=== PATIENT | male | born 1965 | race Caucasian/White ===

== ENCOUNTER 2024-09-06 13:03 | Emergency (ER) | payer OTHER, SELFPAY ==
--- NOTE | 2024-09-06 13:05 | ED_ITS ---
HPI - Skin/Abscess/Foreign Bdy General Chief complaint: Skin/Abscess/Foreign Body Stated complaint: Lump underneath left breast that is oozing Time Seen by Provider: 09/06/24 13:05 Source: patient Mode of arrival: ambulatory Limitations: no limitations History of Present Illness HPI narrative: Patient is a 59-year-old male who presents with wound under left breast. Patient states it has been present for few days but just started using yesterday evening. Denies any known wound, growth, bite. Has never had abscesses in the past. Denies any fever, chills, nausea, vomiting, diarrhea. Related Data Allergies Allergy/AdvReac Type Severity Reaction Status Date / Time No Known Drug Allergies Allergy other Verified 09/06/24 13:06 Review of Systems 2 Review of Systems: All systems reviewed & are unremarkable except as noted in HPI and below Constitutional: Constitutional: Denies body ache(s), Denies chills, Denies fatigue, Denies fever(s), Denies headache(s), Denies malaise and Denies weakness Eyes: Eyes: Denies blurry vision, Denies irritation and Denies loss of vision ENT: Denies otalgia, Denies headache(s), Denies nasal discharge, Denies sinus pain and Denies sore throat Cardiovascular: Cardiovascular: Denies chest pain, Denies irregular heart rhythm and Denies dyspnea Respiratory: Respiratory: Denies dyspnea Gastrointestinal: Gastrointestinal: Denies abdominal pain, Denies melena, Denies hematochezia, Denies diarrhea, Denies nausea and Denies vomiting Musculoskeletal: Musculoskeletal: Denies back pain, Denies myalgias and Denies arthralgias Integumentary/Breasts: Skin/Breast: Denies pruritus, Denies rash and Reports wounds (Draining) Neurologic: Denies headache(s), Denies loss of vision and Denies weakness Psychiatric: Psychiatric: Reports no additional psychiatric complaints Endocrine: Endocrine: Denies fatigue PMFSH Comments At time of signature, agree with nursing past medical, surgical, social and family history. There is no relevant family history pertinent to the presenting complaint. Exam 2 Const: General: cooperative, healthy appearing, comfortable, no acute distress and well nourished Nutritional Appearance: well nourished O rientation/consciousness: patient oriented x3 Limitations: no limitations HENMT: Head: normal to inspection, normocephalic and atraumatic Ears: h earing grossly normal bilaterally and external ears normal Face/Nose/Sinus: N ormal external nose present, normal facial exam and face symmetric Face and sinus: normal facial exam and face symmetric Mouth: Yes lip normal Eyes: General: appearance normal, both eyes and all related structures A lignment and Position: alignment normal and position normal Periorbital: p eriorbital findings normal Eyelids: eyelids normal Pupils: Equal, round and reactive pupils present EOM: EOMs intact bilaterally Neck: Neck: normal visual inspection, full ROM and supple Chest: Chest palpation & inspection: normal inspection of the chest Resp: Effort & Inspection: normal respiratory effort and able to speak in complete sentences Auscultation: clear to auscultation bilaterally Cardio: Rate: regular rate Rhythm: regular rhythm Heart sounds: S1 normal heart sound present and S2 normal heart sound present GI: Inspection: normal to inspection Skin: General skin exam: normal color and no rashes or lesions noted Full body images: 1. 2x1 cm area of erythema, induration. Actively draining purulence drainage, fluctuation at the center where draining Neuro: General: patient oriented x3 and moves all extremities Cranial nerves: Yes Equal, round and reactive pupils present Speech: normal speech Gait exam (Neuro): Normal gait present Extrem: General: normal to inspection, full ROM and no edema Psych: Appearance: grossly normal and well kempt Mental Status: mental status grossly normal Speech and movement: Normal speech and movement present Affect: normal affect Attitude: cooperative Thought process: Normal thought process present Course Course Emergency Course: Patient is aware of diagnosis, understands and agrees to treatment plan. Anticipatory guidance given. Patient agrees to follow-up as directed and is aware of reasons to seek care at the emergency department. Portions of this record may have been created with voice recognition software Level of Care: Express Care Visit Vital Signs Vital signs: Vital Signs Temperature 36.4 C 09/06/24 13:12 Pulse Rate 88 09/06/24 13:12 Respiratory Rate 16 09/06/24 13:12 Blood Pressure 202/86 H 09/06/24 13:12 Pulse Oximetry 96 09/06/24 13:12 Oxygen Delivery Room Air 09/06/24 13:12 Temperature 36.4 C 09/06/24 13:12 Pulse Rate 88 09/06/24 13:12 Respiratory Rate 16 09/06/24 13:12 Blood Pressure 202/86 H 09/06/24 13:12 Pulse Oximetry 96 09/06/24 13:12 Oxygen Delivery Room Air 09/06/24 13:12 Reviewed. Repeat BP 158/100 left arm manually MDM - Skin/Abscess/Foreign Bdy MDM Narrative Medical decision making narrative: Wound culture sent. Large amount of drainage expelled with manual pressure. Antibiotics sent Pt well hydrated appearing, in no respiratory distress, hemodynamically stable. Recommend supportive care. The patient is stable at time of discharge the clinical impression was discussed and the patient was given the opportunity to ask questions, which were addressed as completely as possible given the information available at present. Anticipatory guidance and return to care precautions were discussed and the importance of primary care follow-up was stressed and encouraged. The patient voiced understanding of the plan, indications to return, and the need for follow-up. Exam findings show no acute concerns or changes Patient is appropriate for outpatient treatment and follow-up. Differential Diagnosis Differential diagnosis: Likely abscess of skin or subcutaneous tissue and cellulitis Discharge Plan Discharge Clinical Impression: Abscess of skin or subcutaneous tissue Qualifiers: Site of cutaneous abscess: trunk Site of cutaneous abscess of trunk: chest wall Qualified Code(s): L02.213 - Cutaneous abscess of chest wall Patient Disposition: Home Condition: Stable Instructions: Abscess (ED) Additional Instructions: You have had an abscess drained at [facility]. You may shower - let the soapy water clean your wound, do not scrub it. Keep your wound covered to prevent transmission of infection to other people. Keep the wound covered and dry. Once a day: wash the wound with soap/water, apply bacitracin or neosporin and re-cover the wound. Follow up with your primary care physician or in the Emergency Department in 2-3 days for a wound check. Go to the Emergency Department immediately if you develop any of the following symptoms: Fevers, Increased redness or swelling around where your abscess was, Increased pain, or Generalized weakness or vomiting LYour blood pressure was elevated above 120/80 today at Urgent Care. This puts you above the threshold for follow up visit with a primary care provider. High blood pressure does not usually cause any symptoms, however it may lead to kidney failure, stroke, heart disease just to name a few if untreated . Many people are anxious when seeing a provider or nurse. As a result, you are not diagnosed with hypertension at this time unless your blood pressure is persistently high at two office visits at least one week apart. Some things that can help lower blood pressure are lifestyle modifications, such as light exercise, decreased salt in diet, and weight loss. It is important to follow up with a PCP about this within 1 week. Patient Language: Icelandic Prescriptions: New clindamycin HCl 300 mg capsule 300 mg PO Q8H 10 Days Qty: 30 0RF sulfamethoxazole-trimethoprim 800-160 mg tablet 1 tablet PO Q12H 10 Days Qty: 20 0RF mupirocin 2 % ointment 1 applic topical BID Qty: 15 0RF Follow-up/Referrals: Edy,Ramiro Galo DO [Primary Care Provider] - 3 Days Time of Disposition: 14:23
[2024-09-06 13:12] VITALS: BP 202/86; PULSE 88; RESP 16; TEMP 36.4; O2SAT 96
[2024-09-06 14:38] VITALS: BP 158/100
== END 2024-09-06 14:38 | disposition home or self-care (01) ==
PROVIDERS: Emergency Provider Nurse Practitioner Family; PCP Family Medicine
DX: L02.213 Cutaneous abscess of chest wall (principal); I10 Essential (primary) hypertension; E11.9 Type 2 diabetes mellitus without complications; E78.00 Pure hypercholesterolemia, unspecified
CPT/HCPCS: 99203; G0463

== ENCOUNTER 2025-02-15 01:20 | Inpatient (IN) | payer OTHER, SELFPAY ==
[2025-02-15] VITALS (16 sets, daily range): BP systolic 118–224; BP diastolic 49–120; PULSE 85–133; RESP 13–36; TEMP 36.3–37.7; O2SAT 94–99; BMI 32.7
--- NOTE | ~2025-02-15 | CT_ITS ---
CT HEAD CTA NECK, CTA HEAD Clinical History: slurred speech, altered gait Comparison: None TECHNIQUE: Unenhanced axial images skull base to vertex Coronal, sagittal reformats Helical images thoracic inlet to vertex 100 mL Omnipaque 350 Coronal, sagittal reformats. Multi planar MIPS. CT images acquired with automatic exposure control for dose reduction DLP: 1949 mGy-cm Findings: CT HEAD Chronic white matter microvascular ischemic changes. Ill-defined hypodensity right parietal. Chronic infarct left cerebellum. Basal ganglia lacunae. Sulci, ventricles: Unremarkable. No intracerebral hemorrhage. No mass effect, midline shift. Bony calvarium intact. Visualized paranasal sinuses: Clear. Mastoid air cells: Clear. No abnormal foci of contrast enhancement. Patent dural venous sinuses. CTA NECK NASCET Criteria utilized Aortic arch: No aneurysm or dissection. Great vessel origins: No stenosis. CCAs: No dissection. No stenosis. Cervical ICAs: Bulb calcifications but no significant stenosis. Vertebral Arteries: Patent. Lung Apices: Clear. Thyroid: Unremarkable. Nodes: No enlarged nodes. Bones: No acute bony abnormality. CTA HEAD: Aneurysms: None. Intracranial ICAs: Calcifications but patent. ACAs and their distal branches: Left P1 congenitally absent. Patent. A-Comm: Identified. Patent, unremarkable. MCAs and their distal branches: Patent, unremarkable. Basilar artery: Patent, unremarkable. photograph inspector and their distal branches: Scattered stenoses. Question focal occlusion right P2/3 junction. P-Comms: Neither identified. IMPRESSION: CT HEAD: 1. Age indeterminate infarct right parietal lobe. CTA NECK: 1. No ICA stenosis or other acute arterial abnormality. CTA HEAD: 1. No large vessel arterial occlusive disease. 2. Question focal occlusion right P2/3 junction. 3. No aneurysms. Reviewed, dictated and finalized at location R. UCE SERVICE TEAM MEMBER
--- NOTE | ~2025-02-15 | MR_ITS ---
EXAMINATION: MRI brain with and without contrast: DATE: 02/16/2025. INDICATION: Dysarthria. Gait instability. TECHNIQUE: Axial, coronal and sagittal images including diffusion series, T2*gradient echo sequence and postcontrast series with MultiHance IV, 15 cc. COMPARISON: CT angiogram head and neck dated 02/15/2025. FINDINGS: On the diffusion sequence, restricted diffusion is noted in the right parieto-occipital location suggestive of acute or subacute infarct. No acute intracranial bleed. No ventriculomegaly or midline shift. No abnormal enhancement on postcontrast study. IMPRESSION: 1. Restricted diffusion involving posterior right parieto-occipital location suggestive of acute or subacute infarct. 2. No intracranial bleed. Chronic ischemic change of periventricular white matter on both sides. 3. No abnormal enhancement on postcontrast study. Reviewed, dictated and finalized at location T. TER SCHOOL EXECUTIVE DIRECTOR IMPRESSION: 1. Restricted diffusion involving posterior right parieto-occipital location restrepo ggestive of acute or subacute infarct. 2. No intracranial bleed. Chronic ischemic change of periventricular white lainey er on both sides. 3. No abnormal enhancement on postcontrast study.
--- NOTE | ~2025-02-15 | XR_ITS ---
EXAMINATION: XR chest 1V portable DATE: 02/16/2025 14:32 INDICATION: Shortness of breath. TECHNIQUE: A single frontal view of the chest was obtained. COMPARISON: Chest x-ray of 02/15/2025 FINDINGS: Partial resolution of interstitial edema and airspace opacities of mid and lower lung nava compared with previous study. Upper lung nava are relatively clear. IMPRESSION: 1. Partial resolution of bilateral airspace opacities compared with previous examination on 02/15/2025. Reviewed, dictated and finalized at location T. EGG PACKER IMPRESSION: 1. Partial resolution of bilateral airspace opacities compared with previous ex amination on 02/15/2025.
--- NOTE | ~2025-02-15 | XR_ITS ---
Examination: XR chest 1V portable Clinical History: stroke w/u HYPERGLYCEMIA Comparison: None Technique: Portable AP Findings: Heart size normal. Lungs clear. No acute bony abnormality. IMPRESSION: 1. No acute cardiopulmonary findings given portable technique. Reviewed, dictated and finalized at location R. GAGE SERVICING SPECIALIST
--- NOTE | ~2025-02-15 | XR_ITS ---
XR chest 1V portable 02/15/2025 19:16 Indication: Shortness of breath Procedure: AP portable chest Comparison: 02/15/2025 Findings: Developing bilateral airspace disease, compatible with edema. Pneumonia less favored. Heart size normal. No significant effusion or pneumothorax. Impression: 1: Developing bilateral airspace disease, most likely pulmonary edema. Reviewed, dictated and finalized at location O. ARE SUPERVISOR Impression: 1: Developing bilateral airspace disease, most likely pulmonary edema.
--- OUTSIDE RECORDS SUMMARY | 2025-02-15 01:23 | XMS_ITS | Clinical Summary ---
Author Organization [facility] [address] Address [address] [place] [address] [address] [place] [address] Care Team Providers Care Sales Performance Manager Name Role Phone [place], Ramiro Stanford Primary Care Provider Allergies No known active allergies Medications nitroglycerin (NITROSTAT) 0.[address] 1 tablet by sublingual route at the 1st sign of attack; may repeat every 5 min until relief; if pain persists after 3 tablets in 15 min, prompt medical attention is recommended 0 0 01/13/20 13 Active tppvponz-jtb-SG-lyc open-lutein (CENTRUM SILVER ULTRA MEN'S) 300-600-300 mcg tablet take 1 tablet by Oral route every day 0 0 05/12/19 14 Active Additional Information Patient not taking.Reported on 08/16/2024 aspirin 325 mg enteric coated tablet Take 1 tablet (325 mg total) by mouth daily Active insulin syr/ndl U100 half casie 0.3 mL 30 gauge x 5/16 syringe by other route 04/25/19 15 Active carvediloL (COREG) 6.25 mg tabletIndications:A therosclerosis of [place] coronary artery of [place] heart without angina pectoris,Ischemic cardiomyopathy,Past myocardial infarction TAKE 1 TABLET BY MOUTH TWICE DAILY WITH MEALS 180 tablet 3 08/03/19 25 Active clopidogreL (PLAVIX) 75 mg tabletIndications:A therosclerosis of [place] coronary artery of [place] heart without angina pectoris Take 1 tablet by mouth once daily 90 tablet 3 08/03/19 25 Active fenofibrate nanocrystallized (TRICOR) 145 mg tabletIndications:D yslipidemia Take 1 tablet by mouth once daily 90 tablet 3 08/03/19 25 Active glyBURIDE (DIABETA) 5 mg tabletIndications:T ype 2 diabetes mellitus with diabetic peripheral angiopathy without gangrene, with long-term current use of insulin (HCC) TAKE 1 TABLET BY MOUTH TWICE DAILY WITH MEALS 180 tablet 3 08/03/19 25 Active lisinopriL (PRINIVIL,ZESTRIL) 10 mg tabletIndications:T ype 2 diabetes mellitus with diabetic peripheral angiopathy without gangrene, with long-term current use of insulin (HCC) Take 1 tablet by mouth once daily 90 tablet 3 08/03/19 25 Active LANTUS 100 unit/mL vial for injectionIndication s:Type 2 diabetes mellitus with diabetic peripheral angiopathy without gangrene, with long-term current use of insulin ([facility]) INJECT 30 UNITS SUBCUTANEOUSLY NIGHTLY; DISCARD VIAL 28 DAYS AFTER 1ST USE 10 mL 1 10/27/19 25 Active Active Problems Problem Noted Date Diagnosed Date Type 2 diabetes mellitus wit h diabetic peripheral angiopathy without gangrene, with long-term current use of insulin 08/15/2023 Overview (08/16/2024): Diabetes with vascular disease (coronary artery disease) requiring insulin He is due for ophthalmology exam A1c 8.1 in September 2021 A1c 11.5 in March 2022 A1c >14 in July 2024 He is on an DANG inhibitor and statin Continue same medications for now Assessment & Plan (08/15/2023 4:04 PM CDT): Update labs Routine physical examination 08/15/2023 Overview (08/16/2024): New: August 15, 2023 August 16, 2024 Dyslipidemia 08/15/2023 Overview (08/15/2023): Chronic and overall stable Continue fenofibrate Assessment & Plan (08/15/2023 4:04 PM CDT): Recheck lab Past myocardial infarction 12/28/2012 Overview (08/15/2023): Coronary artery disease with prior myocardial infarction and old stent placement Stable without any concerns at this time Continue same medications including Plavix and beta-jaelyn Atherosclerotic heart diseas e of [place] coronary artery without angina pectoris 12/21/2012 Overview (08/15/2023): Coronary artery disease with prior stent placement x3 (approximately 2009 and 2012) He is on a beta-jaelyn and statin No present concerns Continue same medications Ischemic cardiomyopathy 12/21/2012 Overview (08/15/2023): Chronic and overall stable Continue DANG inhibitor (lisinopril) and beta-jaelyn (Coreg) Continue same medications Resolved Problems Problem Noted Date Diagnosed Date Resolved Date Mixed hyperlipidemia 12/21/2012 024 Immunizations Immunization Administration Dates Next Due Influenza, Quadrivalent, Rec ombinant, Egg Free, Preservative Free, Intramuscular 12/20/2019,11/02/2018 Influenza, Unspecified 11/22/2023(Deferr ed: Patient Refused),05/21/2023(Deferred: Patient Refused),04/18/2018,12/02/2016 Pneumococcal Polysaccharide PPV23 11/10/2010 TD Preservative Free 02/21/2005 Tdap 04/14/2017 Surgical History Surgery Date Site/Laterality Comments CORONARY STENT PLACEMENT Coronary Stent Placement Medical History Medical History Date Comments Hx Other Medical 2008 Diabetes Type I I Hypertension Hypertension Cardiovascular disease Coronary Artery Disease Family History Medical History Relation Name Comments Heart attack Father Heart attack Maternal Grandfather Myocard ial Infarction; Cause of : Myocardial Infarction Dementia Mother Relation Name Status Comments Father Maternal Grandfather Mother Social History Tobacco Use Types Packs/Day Years Used Date Smoking Tobacco: Former Cigarettes 1 4 1 984 - 02/21/1990 Tobacco Cessation:Counseling Given: Not Answered Alcohol Use Standard Drinks/Week Comments No 0 (1 standard drink = 0.6 oz pur e alcohol) AUDIT-C Answer Date Recorded Q1: How often do you have a drink containing alc ohol? Monthly or less 08/16/2024 Q2: How many drinks containi ng alcohol do you have on a typical day when you are drinking? 1 or 2 08/16/2024 Q3: How often do you have si x or more drinks on one occasion? Never 08/16/2024 PHQ-2 Answer Date Recorded PHQ-2 Total Score (If total score is 3 or more points, staff should administer the PHQ-9) 0 08/16/2024 Sex and Gender Information Value Date Recorded Sex Assigned at Not on file Legal Sex Male 3:04 AM VIRTUALIZATION ARCHITECT Gender Identity Not on file Sexual Orientation Not on file Last Filed Vital Signs Vital Sign Reading Time Taken Comments Blood Pressure 132/84 08/16/2024 3:30 PM CDT Pulse 63 08/16/2024 3:30 PM CDT Temperature 36.4 C (97.6 F) 08/16/2024 3:30 PM CDT Respiratory Rate 18 08/16/2024 3:30 PM CDT Oxygen Saturation 98% 08/16/2024 3:30 PM CDT Inhaled Oxygen Concentration - - Weight 107.1 kg (236 lb 3.2 oz) 08/16/2024 3:30 PM CDT Height 177.8 cm (5' 10) 08/16/2024 3:30 PM CDT Body Mass Index 33.89 08/16/2024 3:30 PM CDT Plan of Treatment Health Maintenance Due Date Last Done Comments Colon Cancer Screening-Colonoscopy 1965 Hepatitis C Screening 1965 Dilated Eye Exam 1965 Foot Exam 1965 Hepatitis B Screening 02/25/1982 Pneumococcal vaccine <65 (2 of 2 - PCV) 11/11/2011 11/10/2010 Zoster Vaccine (1 of 2) 02/25/2014 Covid-19 Vaccine (5 - 2024-2 6 season) 2024 10/09/2021, 02/19/2021, 06/01/2020, Additional history exists Influenza Vaccine (#1) 2024 , 11/02/2018, 04/18/2018, Additional history exists Hemoglobin A1C 02/03/2025 08/04/2024 Albumin Creatinine Ratio, Urine 08/04/2025 Lipid Panel 08/04/2025 08/04/2024, 03/25, 01/16/2013 eGFR 08/04/2025 08/04/2024 Depression Screening 08/16/2025 08/16/2024, 08/15/19 Regular Well Visit/Exam 18-64 08/16/2025 08/16/2024, 08/15/2023 Prostate Cancer Screening-PSA 08/04/2026 08/04/2024 DTaP/Tdap/Td Vaccine (2 - Td or Tdap) 04/14/2027 04/14/2017, 02/21/2005 Procedures Procedure Name Priority Date/Time Associated Diagnosis Comments COMPREHENSIVE METABOLIC PANEL Routine 08/04/2024 7:32 AM CDT HEMOGLOBIN A1C Routine 08/04/2024 7:32 AM CDT LIPID PANEL Routine 08/04/2024 7:32 AM CDT ALBUMIN CREATININE RATIO, URINE Routine 08/04/2024 7:32 AM CDT PSA SCREEN Routine 08/04/2024 7:32 AM CDT from Last 3 Months or Most Recently Relevant to Health Maintenance Results * PSA screen (08/04/2024 7:32 AM CDT) PSA 0.51 < OR = 4.00 ng/mL [facility] Comment: The total PSA value from this assay system is standardized against the WHO standard. The test result will be approximately 20% lower when compared to the equimolar-standardized total PSA ([place]). Comparison of serial PSA results should be interpreted with this fact in mind. This test was performed using the Siemens chemiluminescent method. Values obtained from different assay methods cannot be used interchangeably. PSA levels, regardless of value, should not be interpreted as absolute evidence of the presence or absence of disease. 08/04/2024 7:32 AM CDT 08/04/2024 7:32 AM CDT us Ramiro Snow DO LAB BLOOD ORDERABLES F inal Result [facility] [id number] [phone] * (ABNORMAL) Albumin Creatinine Ratio, Urine (08/04/2024 7:32 AM CDT) Creatinine, ur 75 20 - 320 mg/dL [facility] Microalbumin, ur 41.8 See Note: mg/dL [facility] Comment: Reference Range: Reference Range Not established Verified by repeat analysis. Microalbumin/creat ratio 557(H) <30 mg/g creat [facility] Comment: The ADA defines abnormalities in albumin excretion as follows: Albuminuria Category Result (mg/g creatinine) Normal to Mildly increased <30 Moderately increased 30-299 Severely increased > OR = 300 The ADA recommends that at least two of three specimens collected within a 3-6 month period be abnormal before considering a patient to be within a diagnostic category. 08/04/2024 7:32 AM CDT 08/04/2024 7:32 AM CDT [employer] URINE ORDERABLES F inal Result Performing Organization Address [facility] Co de Phone Number [facility] [address] [place] [address] * (ABNORMAL) Hemoglobin A1c (08/04/2024 7:32 AM CDT) Hgb A1C >14.0(H) <5.7 % of total Hgb [facility] Comment: Verified by repeat analysis. For someone without known diabetes, a hemoglobin A1c value of 6.5% or greater indicates that they may have diabetes and this should be confirmed with a follow-up test. For someone with known diabetes, a value <7% indicates that their diabetes is well controlled and a value greater than or equal to 7% indicates suboptimal control. A1c targets should be individualized based on duration of diabetes, age, comorbid conditions, and other considerations. Currently, no consensus exists regarding use of hemoglobin A1c for diagnosis of diabetes for children. 08/04/2024 7:32 AM CDT 08/04/2024 7:32 AM CDT [employer] LAB BLOOD ORDERABLES F inal Result Performing Organization Address City/[facility]/ZIP Co de Phone Number [email or web address] [address] [address] [phone] * (ABNORMAL) Lipid panel (08/04/2024 7:32 AM CDT) Cholesterol 237(H) <200 mg/dL [facility] HDL 36(L) > OR = 40 mg/dL [facility] Triglycerides 185(H) <150 mg/dL [facility] LDL 167(H) mg/dL (calc) [facility] Comment: Reference range: <100 Desirable range <100 mg/dL for primary prevention; <70 mg/dL for patients with CHD or diabetic patients with > or = 2 CHD risk factors. LDL-C is now calculated using the Stanford-Jenaro calculation, which is a validated novel method providing better accuracy than the Friedewald equation in the estimation of LDL-C. Stanford SS et al. ALEXSANDER. 2013;310(19): 9244-4774 (http://education.[employer] Community/faq/TDC381) Chol/HDL ratio 6.6(H) <5.0 (calc) [facility] Non-HDL, (LDL+VLDL) 201(H) <130 mg/dL (calc) [facility] Comment: For patients with diabetes plus 1 major ASCVD risk factor, treating to a non-HDL-C goal of <100 mg/dL (LDL-C of <70 mg/dL) is considered a therapeutic option. 08/04/2024 7:32 AM CDT 08/04/2024 7:32 AM CDT Ramiro Snow LAB BLOOD ORDERABLES F inal Result [facility] [address] [facility] [place] [phone] * (ABNORMAL) Comprehensive metabolic panel (08/04/2024 7:32 AM CDT) Glucose 296(H) 65 - 99 mg/dL [facility] Comment: Fasting reference interval For someone without known diabetes, a glucose value >125 mg/dL indicates that they may have diabetes and this should be confirmed with a follow-up test. BUN 17 7 - 25 mg/dL [facility] Creatinine 1.20 0.70 - 1.35 mg/dL [facility] eGFR 69 > OR = 60 mL/min/1.7 3m2 [facility] BUN/creat ratio SEE NOTE: 6 - 22 (calc) [facility] Comment: Not Reported: BUN and Creatinine are within reference range. Sodium 138 135 - 146 mmol/L [facility] Potassium, pl 3.9 3.5 - 5.3 mmol/L [facility] Chloride 99 98 - 110 mmol/L [facility] CO2 29 20 - 32 mmol/L [facility] Calcium 9.1 8.6 - 10.3 mg/dL [facility] Protein, sr 6.6 6.1 - 8.1 g/dL [facility] Albumin 4.3 3.6 - 5.1 g/dL [facility] GLOBULIN 2.3 1.9 - 3.7 g/dL (calc) [facility] Alb/glob ratio 1.9 1.0 - 2.5 (calc) [facility] Bilirubin, total 0.4 0.2 - 1.2 mg/dL [facility] Alk phos 21(L) 35 - 144 U/L [facility] AST 11 10 - 35 U/L [facility] ALT (SGPT) 13 9 - 46 U/L [facility] 08/04/2024 7:32 AM CDT 08/04/2024 7:32 AM CDT us Ramiro Snow DO LAB BLOOD ORDERABLES F inal Result [facility] [address] [address] [phone] from Last 3 Months or Most Recently Relevant to Health Maintenance Insurance [address] [place] [id number] R [facility] Care Teams Sales Performance Manager Relationship Specialty Start Date End Date Ramiro Snow DO [address] [place] [id number] PCP - General Family Medicine 08/15/23
--- OUTSIDE RECORDS SUMMARY | 2025-02-15 01:23 | XMS_ITS ---
Author Organization Unknown ENCOUNTERS Encounter Performer Location Date Diagnosis Diagnosis Status Pre Admit [place] [id number] [place] [phone] *Note: Encounters from your own facility or health system may be excluded. Allergies, Adverse Reactions, Alerts Allergen Type Severity Identification Date Medications Name Date Quantity Days Supplied GPI Number
[2025-02-15 03:51] LABS: Hematocrit 50.6 % (42.0-52.0); Hemoglobin 17.4 g/dL (14.0-18.0); Immature Granulocyte Percent A 0.2 % (0-0.5); Lymphocytes Absolute Auto 0.99 K/mm3 (0.9-3.2); Mean Corpuscular HGB Conc 34.4 g/dl (32-36); Mean Corpuscular Hemoglobin 31.0 pg (26-34); Mean Corpuscular Volume 90.0 fl (80-100); Nucleated Red Blood Cells Absolute Auto 0.000 K/mm3 (0.0-0.012); Nucleated Red Blood Cells Perc 0.0 % (0.0-0.2); Platelet Count Result 244 k/mm3 (150-375); Red Blood Count 5.62 M/mm3 (4.6-6.20); White Blood Count 12.0 K/mm3 (4.5-10.0)
--- NOTE | 2025-02-15 03:58 | ED_ITS ---
HPI - Recheck/Abnormal Lab/Rx General Chief Complaint: Recheck/Abnormal Lab/Rx Stated Complaint: high blood sugar Time Seen by Provider: 02/15/25 03:45 Source: patient and family Mode of arrival: ambulatory History of Present Illness HPI narrative: Patient presents with concern for elevated blood sugar. He states the past few days, he believes 2, he has had slurred speech and difficulty walking. He is on insulin for his diabetes, reports that he is on glyburide as well as normal insulin long-acting. He reports that he does not routinely check his blood sugar but when he tried at home his glucometer registered high/error. He states this has happened before previously and at that time he was admitted and had a myocardial infarction however he denies knowledge of any previous diagnosis of DKA or HHS. He denies any vision changes or paresthesias. Spouse reports that he has been confused but she does concur with the history as above. Related Data Home Medications ?Medication ?Instructions ?Recorded ?Confirmed ?Last Taken ?Type carvedilol 6.25 mg tablet 6.25 mg PO Q12H 02/15/25 Unknown History clopidogrel 75 mg tablet 75 mg PO DAILY 02/15/2501/22 Unknown History fenofibrate nanocrystallized 145 145 mg PO DAILY 02/1502/15/25 Unknown History mg tablet glyburide 5 mg tablet 5 mg PO BID 02/15/25 5 Unknown History insulin glargine 100 unit/mL 30 unit subcut QPM 02/15/25 Unknown History subcutaneous solution (Lantus U-100 Insulin) lisinopril 10 mg tablet 10 mg PO DAILY 02/15/2501/22 Unknown History Allergies Allergy/AdvReac Type Severity Reaction Status Date / Time No Known Drug Allergies Allergy other Verified 02/15/25 09:31 [facility] Past Medical History Medical History Myocardial infarct Insulin dependent diabetes mellitus Family History Family History (Updated 02/15/25 @ 09:33 by Bethany Dumont RN) Father Heart attack Other Diabetes mellitus Social History Social History Smoking packs per day: 2 Smoking cigarettes per day: 40.0 Years smoked: 10 Smoking pack-years: 20.00 Smoking status: Former smoker Alcohol intake: current Drinks per week: 1 Substance use: never Lack of Transportation: No Lack of Food: Never True Current Housing: I Have Housing Concerned About Future Housing: No Difficulty Paying Gas/Electric Bills: No Difficulty Paying for Meds: No Currently Unemployed: No Education: Bachelor's Degree Difficulty w/ Childcare or Family Care: No Living arrangements: with family Spiritual care concerns: No Exam 2 Narrative: GENERAL: Well-appearing, well-nourished, and in no acute distress. HEAD: Normocephalic, atraumatic. EYES: Non injected, non icteric. No gaze palsy. Unable to assess visual nava as he can not follow instructions to do so (keeps opening one eye and then the other or commenting on the finger he sees but not which one is moving, keeps looking at the finger rather than at the nose with fingers in the periphery) ENT: Nares clear, no rhinorrhea or epistaxis. Gross auditory acuity intact. NECK: Supple. No meningismus. CHEST: Speaking in full sentences. No respiratory distress. HEART: Regular rate and rhythm. ABDOMEN: Soft, nondistended. No rigidity or guarding. Not peritoneal EXTREMITIES: Normal range of motion. No lower extremity edema. No motor drift x4. SKIN: Warm, dry, no rash. NEURO: No focal deficits. Alert and oriented. Answering questions but gets age wrong (says 66...then 61...is able to confirm he is 59yo when he confirms his ). Following commands. No aphasia but mild to moderate dysarthria, slurred though can understand patient. Extension to bilateral simultaneous stimulus. Patient appears ataxic on bilateral FNF; does slightly better in right leg heel lozano but does poorly in left leg heel lozano. PSYCH: Normal mood and affect. Course Vital Signs Vital signs: Vital Signs Temperature 97.4 F L 02/15/25 01:28 Pulse Rate 99 02/15/25 01:28 Respiratory Rate 16 02/15/25 01:28 Blood Pressure 177/82 H 02/15/25 01:28 Pulse Oximetry 97 02/15/25 01:28 Temperature 100 F H 02/15/25 12:00 Pulse Rate 98 02/15/25 14:00 Respiratory Rate 19 02/15/25 14:00 Blood Pressure 154/72 H 02/15/25 14:00 Pulse Oximetry 94 02/15/25 14:00 Oxygen Delivery Room Air 02/15/25 12:00 [facility] Narrative Medical decision making narrative: This is a 59 year old male who presents to the emergency department with concern for neurological symptoms and elevated blood sugar. Last known well is 2 days ago. The patient is protecting their airway which is patent. An IV is established by nursing staff blood work sent to the lab for evaluation. An EKG will be performed. Accu-Chek was >500. NIHSS was evaluated per below. In the emergency department he is afebrile vital signs notable for hypertension. Point care glucose is greater than 500 mg/dL. Additional labs and 1 L IV fluids ordered initially. 2nd bolus IV fluids also ordered. Mild leukocytosis. Due to report of slurred speech and difficulty walking, CT brain also ordered. NIHSS Level Of consciousness: 0 Month and age: 1 Follows commands: 0 Gaze palsy: 0 Visual nava: unable to assess Facial palsy: 0 Left arm motor drift:0 Right arm motor drift:0 Left leg motor drift:0 Right leg motor drift:0 Limb ataxia: 2 Sensation:0 Aphasia: 0 Dysarthria: 1 Extinction:1 Total: 5 DIFFERENTIAL DIAGNOSES Considered Stroke (CVA / TIA) mimics including but not limited to: migraines, hypoglycemia, seizures/Earl's paralysis, sepsis/severe infections in patients with prior strokes (e.g. recrudescence), syncope, brain masses, transient global amnesia, panic attack/hyperventilation, and conversion disorders. Patient has comorbidities that complexity management. Namely, his insulin dependent diabetes mellitus with more control recently and initially unclear degree of control. Patient will require admission with workup to possibly include echo, and cardiac monitoring. Goal is to maintain normotension/permissive hypertension as well as euglycemia. His hyperglycemia is with mild anion gap but no neha acidosis. Sodium corrects to 143 or even 146 (mild hypernatremia) given the hyperglycemia. urinalysis with proteinuria, ketonuria, glucosuria but otherwise without markers of infection. Magnesium phosphorus and potassium are normal. Will give a one time dose of subcutaneous insulin. Beta hydroxybutyrate is elevated. Patient has an elevated troponin; no prior for comparison. 3 hr troponin and aspirin are ordered. Repeat BP still elevated on repeat. Repeat BMP ordered to be timed with troponin. He denies having a pacemaker. He states that he does have some hardware in his ankle from a fracture was placed in this hospital. Amenable to admission and further work up and management. HA1c and lipid panel ordered for further risk factor modification. Viral swab negative. Discussed with hospitalist who recommends admitting to the ICU for HHS. She will place orders regarding this management. I will place MRI order. 3rd L fluid bolus is ordered. 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 Repeat troponin flat. HA1c >14% showing poor baseline control of diabetes. Repeat POC glucose is slightly improving. Differential Diagnosis Differential Diagnosis: hyperglycemia, HHS, DKA; normal pressure hydrocephalus Lab Data MDM Lab Attestation statement: I personally reviewed the patient's lab results. 02/15/25 03:46 02/15/25 11:25 Labs: Lab Results 02/15/25 02/15/25 02/15/25 Range/Units 02:40 03:46 03:46 WBC 12.0 H (4.5-10.0) K/mm3 RBC 5.62 (4.6-6.20) M/mm3 Hgb 17.4 (14.0-18.0) g/dL Hct 50.6 (42.0-52.0) % MCV 90.0 (80-100) fl MCH 31.0 (26-34) pg MCHC 34.4 (32-36) g/dl RDW 12.0 (11.5-14.5) % Plt Count 244 (150-375) k/mm3 MPV 10.6 H (7.4-10.4) fl Immature Gran % (Auto) 0.2 (0-0.5) % Neut % (Auto) 89.3 H (45.5-73.1) % Lymph % (Auto) 8.2 L (18.3-44.2) % [place] % (Auto) 1.9 L (2.6-8.5) % Eos % (Auto) 0.0 (0-4.4) % Baso % (Auto) 0.4 (0.2-1.2) % Lymph # (Auto) 0.99 (0.9-3.2) K/mm3 [place] # (Auto) 0.2 (0.1-0.6) K/mm3 Eos # (Auto) 0.0 (0-0.3) K/mm3 Baso # (Auto) 0.1 (0.0-0.1) K/mm3 Abs Immat Gran (auto) 0.03 (0.00-0.031) K/mm3 Absolute Neuts (auto) 10.7 H (1.3-6.7) K/mm3 Absolute Nucleated RBC 0.000 (0.0-0.012) K/mm3 Nucleated RBC % 0.0 (0.0-0.2) % Sodium 136 L (137-145) mmol/L Potassium 3.8 (3.4-5.0) mmol/L Chloride 97 L (98-107) mmol/L Carbon Dioxide 25 (22-30) mmol/L Anion Gap 14 H (4-12) mmol/L BUN 15 (9-20) mg/dL Creatinine 1.01 (0.7-1.3) mg/dL Estim Creat Clear Calc Not Reportable Estimated GFR > 60 (59 - ) Glucose 527 H* (65-110) mg/dL POC Capillary Glucose > 500 H* (65-105) mg/dl Hemoglobin A1c (<5.7) % Calcium 9.4 (8.4-10.2) mg/dL Phosphorus 3.9 (2.5-4.5) mg/dL Magnesium 1.9 (1.6-2.3) mg/dL Total Bilirubin 0.9 (0.2-1.3) mg/dL AST 28 (17-59) U/L ALT 27 (6-50) U/L Alkaline Phosphatase 42 (38-126) U/L Troponin I 0.060 H* Cancelled (0.000-0.034) ng/mL Total Protein 7.6 (6.3-8.2) g/dL Albumin 4.5 (3.5-5.1) g/dL Triglycerides (<150) mg/dL Cholesterol (0-200) mg/dL LDL Cholesterol Direct mg/dL HDL Direct mg/dL Beta-Hydroxybutyrate/Acetoacetate 2.82 H (0.02-0.27) mmol/L Urine Color (Yellow) Urine Appearance (Clear) Urine pH (5.0-9.0) Ur Specific [place] (1.001-1.035) Urine Protein (Negative) mg/dL Urine Glucose (UA) (Negative) mg/dL Urine Ketones (Negative) mg/dL Ur Blood (Man) (Negative) Urine Nitrate (Negative) Urine Bilirubin (Negative) Urine Urobilinogen (<2.0) mg/dL Leukocyte Esterase Rfl (Negative) CELESTINO/UL Urine RBC (0-2) /hpf Urine WBC (0-3) /hpf Ur Squamous Epith Cells (Few) /hpf Urine Bacteria /hpf Urine Casts Influenza A (RT-PCR) (Negative) Influenza B (RT-PCR) (Negative) RSV (RT-PCR) (Negative) SARS-CoV-2 RNA (RT-PCR) (Negative) 02/15/25 02/15/25 02/15/25 Range/Units 03:59 05:50 06:45 WBC (4.5-10.0) K/mm3 RBC (4.6-6.20) M/mm3 Hgb (14.0-18.0) g/dL Hct (42.0-52.0) % MCV (80-100) fl MCH (26-34) pg MCHC (32-36) g/dl RDW (11.5-14.5) % Plt Count (150-375) k/mm3 MPV (7.4-10.4) fl Immature Gran % (Auto) (0-0.5) % Neut % (Auto) (45.5-73.1) % Lymph % (Auto) (18.3-44.2) % [place] % (Auto) (2.6-8.5) % Eos % (Auto) (0-4.4) % Baso % (Auto) (0.2-1.2) % Lymph # (Auto) (0.9-3.2) K/mm3 [place] # (Auto) (0.1-0.6) K/mm3 Eos # (Auto) (0-0.3) K/mm3 Baso # (Auto) (0.0-0.1) K/mm3 Abs Immat Gran (auto) (0.00-0.031) K/mm3 Absolute Neuts (auto) (1.3-6.7) K/mm3 Absolute Nucleated RBC (0.0-0.012) K/mm3 Nucleated RBC % (0.0-0.2) % Sodium 139 (137-145) mmol/L Potassium 3.6 (3.4-5.0) mmol/L Chloride 101 (98-107) mmol/L Carbon Dioxide 20 L (22-30) mmol/L Anion Gap 18 H (4-12) mmol/L BUN 15 (9-20) mg/dL Creatinine 1.01 (0.7-1.3) mg/dL Estim Creat Clear Calc 86 Estimated GFR > 60 (59 - ) Glucose 471 H (65-110) mg/dL POC Capillary Glucose (65-105) mg/dl Hemoglobin A1c > 14.0 H (<5.7) % Calcium 8.9 (8.4-10.2) mg/dL Phosphorus (2.5-4.5) mg/dL Magnesium (1.6-2.3) mg/dL Total Bilirubin (0.2-1.3) mg/dL AST (17-59) U/L ALT (6-50) U/L Alkaline Phosphatase (38-126) U/L Troponin I 0.060 H* (0.000-0.034) ng/mL Total Protein (6.3-8.2) g/dL Albumin (3.5-5.1) g/dL Triglycerides 137 (<150) mg/dL Cholesterol (0-200) mg/dL LDL Cholesterol Direct mg/dL HDL Direct mg/dL Beta-Hydroxybutyrate/Acetoacetate (0.02-0.27) mmol/L Urine Color Yellow (Yellow) Urine Appearance Clear (Clear) Urine pH 5.5 (5.0-9.0) Ur Specific [place] 1.033 (1.001-1.035) Urine Protein 2+ H (Negative) mg/dL Urine Glucose (UA) 3+ H (Negative) mg/dL Urine Ketones 2+ H (Negative) mg/dL Ur Blood (Man) Trace (Negative) Urine Nitrate Negative (Negative) Urine Bilirubin Negative (Negative) Urine Urobilinogen 0.2 (<2.0) mg/dL Leukocyte Esterase Rfl Negative (Negative) CELESTINO/UL Urine RBC 0-2 (0-2) /hpf Urine WBC 0-5 (0-3) /hpf Ur Squamous Epith Cells None seen (Few) /hpf Urine Bacteria None seen /hpf Urine Casts 0-2 Influenza A (RT-PCR) Negative (Negative) Influenza B (RT-PCR) Negative (Negative) RSV (RT-PCR) Negative (Negative) SARS-CoV-2 RNA (RT-PCR) Negative (Negative) 02/15/25 02/15/25 02/15/25 Range/Units 06:45 06:45 06:45 WBC (4.5-10.0) K/mm3 RBC (4.6-6.20) M/mm3 Hgb (14.0-18.0) g/dL Hct (42.0-52.0) % MCV (80-100) fl MCH (26-34) pg MCHC (32-36) g/dl RDW (11.5-14.5) % Plt Count (150-375) k/mm3 MPV (7.4-10.4) fl Immature Gran % (Auto) (0-0.5) % Neut % (Auto) (45.5-73.1) % Lymph % (Auto) (18.3-44.2) % [place] % (Auto) (2.6-8.5) % Eos % (Auto) (0-4.4) % Baso % (Auto) (0.2-1.2) % Lymph # (Auto) (0.9-3.2) K/mm3 [place] # (Auto) (0.1-0.6) K/mm3 Eos # (Auto) (0-0.3) K/mm3 Baso # (Auto) (0.0-0.1) K/mm3 Abs Immat Gran (auto) (0.00-0.031) K/mm3 Absolute Neuts (auto) (1.3-6.7) K/mm3 Absolute Nucleated RBC (0.0-0.012) K/mm3 Nucleated RBC % (0.0-0.2) % Sodium (137-145) mmol/L Potassium (3.4-5.0) mmol/L Chloride (98-107) mmol/L Carbon Dioxide (22-30) mmol/L Anion Gap (4-12) mmol/L BUN (9-20) mg/dL Creatinine (0.7-1.3) mg/dL Estim Creat Clear Calc Estimated GFR (59 - ) Glucose (65-110) mg/dL POC Capillary Glucose (65-105) mg/dl Hemoglobin A1c (<5.7) % Calcium (8.4-10.2) mg/dL Phosphorus (2.5-4.5) mg/dL Magnesium (1.6-2.3) mg/dL Total Bilirubin (0.2-1.3) mg/dL AST (17-59) U/L ALT (6-50) U/L Alkaline Phosphatase (38-126) U/L Troponin I (0.000-0.034) ng/mL Total Protein (6.3-8.2) g/dL Albumin (3.5-5.1) g/dL Triglycerides Cancelled (<150) mg/dL Cholesterol 245 H Cancelled (0-200) mg/dL LDL Cholesterol Direct 160 Cancelled mg/dL HDL Direct 42 mg/dL Beta-Hydroxybutyrate/Acetoacetate (0.02-0.27) mmol/L Urine Color (Yellow) Urine Appearance (Clear) Urine pH (5.0-9.0) Ur Specific [place] (1.001-1.035) Urine Protein (Negative) mg/dL Urine Glucose (UA) (Negative) mg/dL Urine Ketones (Negative) mg/dL Ur Blood (Man) (Negative) Urine Nitrate (Negative) Urine Bilirubin (Negative) Urine Urobilinogen (<2.0) mg/dL Leukocyte Esterase Rfl (Negative) CELESTINO/UL Urine RBC (0-2) /hpf Urine WBC (0-3) /hpf Ur Squamous Epith Cells (Few) /hpf Urine Bacteria /hpf Urine Casts Influenza A (RT-PCR) (Negative) Influenza B (RT-PCR) (Negative) RSV (RT-PCR) (Negative) SARS-CoV-2 RNA (RT-PCR) (Negative) 02/15/25 Range/Units 06:45 WBC (4.5-10.0) K/mm3 RBC (4.6-6.20) M/mm3 Hgb (14.0-18.0) g/dL Hct (42.0-52.0) % MCV (80-100) fl MCH (26-34) pg MCHC (32-36) g/dl RDW (11.5-14.5) % Plt Count (150-375) k/mm3 MPV (7.4-10.4) fl Immature Gran % (Auto) (0-0.5) % Neut % (Auto) (45.5-73.1) % Lymph % (Auto) (18.3-44.2) % [place] % (Auto) (2.6-8.5) % Eos % (Auto) (0-4.4) % Baso % (Auto) (0.2-1.2) % Lymph # (Auto) (0.9-3.2) K/mm3 [place] # (Auto) (0.1-0.6) K/mm3 Eos # (Auto) (0-0.3) K/mm3 Baso # (Auto) (0.0-0.1) K/mm3 Abs Immat Gran (auto) (0.00-0.031) K/mm3 Absolute Neuts (auto) (1.3-6.7) K/mm3 Absolute Nucleated RBC (0.0-0.012) K/mm3 Nucleated RBC % (0.0-0.2) % Sodium (137-145) mmol/L Potassium (3.4-5.0) mmol/L Chloride (98-107) mmol/L Carbon Dioxide (22-30) mmol/L Anion Gap (4-12) mmol/L BUN (9-20) mg/dL Creatinine (0.7-1.3) mg/dL Estim Creat Clear Calc Estimated GFR (59 - ) Glucose (65-110) mg/dL POC Capillary Glucose (65-105) mg/dl Hemoglobin A1c (<5.7) % Calcium (8.4-10.2) mg/dL Phosphorus (2.5-4.5) mg/dL Magnesium (1.6-2.3) mg/dL Total Bilirubin (0.2-1.3) mg/dL AST (17-59) U/L ALT (6-50) U/L Alkaline Phosphatase (38-126) U/L Troponin I (0.000-0.034) ng/mL Total Protein (6.3-8.2) g/dL Albumin (3.5-5.1) g/dL Triglycerides (<150) mg/dL Cholesterol (0-200) mg/dL LDL Cholesterol Direct mg/dL HDL Direct Cancelled mg/dL Beta-Hydroxybutyrate/Acetoacetate (0.02-0.27) mmol/L Urine Color (Yellow) Urine Appearance (Clear) Urine pH (5.0-9.0) Ur Specific [place] (1.001-1.035) Urine Protein (Negative) mg/dL Urine Glucose (UA) (Negative) mg/dL Urine Ketones (Negative) mg/dL Ur Blood (Man) (Negative) Urine Nitrate (Negative) Urine Bilirubin (Negative) Urine Urobilinogen (<2.0) mg/dL Leukocyte Esterase Rfl (Negative) CELESTINO/UL Urine RBC (0-2) /hpf Urine WBC (0-3) /hpf Ur Squamous Epith Cells (Few) /hpf Urine Bacteria /hpf Urine Casts Influenza A (RT-PCR) (Negative) Influenza B (RT-PCR) (Negative) RSV (RT-PCR) (Negative) SARS-CoV-2 RNA (RT-PCR) (Negative) Imaging Data Attestation: I personally reviewed and interpreted this imaging study as follows: My impression: CXR with some haziness though on the right and without lobar consolidation Ventriculomegaly on my independent interpretation of CT w/o contrast Radiologist's impression: ITS Impressions Chest X-Ray 02/15/25 08:24 IMPRESSION: 1. No acute cardiopulmonary findings given portable technique. Head/Neck CTA 02/15/25 08:29 IMPRESSION: CT HEAD: 1. Age indeterminate infarct right parietal lobe. CTA NECK: 1. No ICA stenosis or other acute arterial abnormality. CTA HEAD: 1. No large vessel arterial occlusive disease. 2. Question focal occlusion right P2/3 junction. 3. No aneurysms. CTA Head Stat Rad: Focal hypoattenuation and loss of metzger-white matter differentiation at the junction of the right parietal and occipital lobes. MRI brain is recommended to assess for acute infarct. No large vessel occlusion or aneurysm. No incidental findings CTA neck: No evidence of high grade arterial stenosis or dissection. No incidental findings. ECG Data EKG #1: Attestation: I personally reviewed and interpreted this ECG as follows: ECG completion date: 02/15/25 ECG completion time: 05:15 Interpretation: Sinus tachycardia rate of 105 beats per minute. FL interval is prolonged at 209 milliseconds consistent with a first-degree AV block. QRS 123. QT/QTC 451/512 urge is somewhat prolonged. Left axis deviation. No T-wave inversions. No ST segment elevation or depression. Discharge Plan Discharge Clinical Impression: Leukocytosis, Hyperglycemia due to diabetes mellitus, Pseudohyponatremia, Elevated beta-hydroxybutyrate, Elevated troponin, Hyperosmolar hyperglycemic state (HHS), Dysarthria, Hemoglobin A1C greater than 9%, indicating poor diabetic control, Elevated cholesterol Patient Disposition: Still a Patient Condition: Stable
[2025-02-15 04:08] LABS: Alanine Aminotransferase 27 U/L (6-50); Albumin Level 4.5 g/dL (3.5-5.1); Alkaline Phosphatase 42 U/L (38-126); Anion Gap 14 mmol/L (4-12); Aspartate Amino Transferase 28 U/L (17-59); Bilirubin,Total 0.9 mg/dL (0.2-1.3); Blood Urea Nitrogen 15 mg/dL (9-20); Calcium 9.4 mg/dL (8.4-10.2); Carbon Dioxide 25 mmol/L (22-30); Chloride 97 mmol/L (98-107); Estimated Glomerular Filt Rate > 60; Glucose 527 mg/dL (65-110); Magnesium 1.9 mg/dL (1.6-2.3); Potassium 3.8 mmol/L (3.4-5.0); Sodium 136 mmol/L (137-145); Total Protein 7.6 g/dL (6.3-8.2)
[2025-02-15 04:11] LABS: Add Urine Microscopic? YES; Appearance Urine Clear (Clear); Glucose Urine UA 3+ mg/dL (Negative); Leukocyte Esterase Ur Negative LEU/UL (Negative); Nitrate Urine Negative (Negative); Non Pathogenic Casts 0-2; Specific Grav Ur 1.033 (1.001-1.035)
--- NOTE | 2025-02-15 04:21 | ECG_ITS ---
Test Date: 2025-02-15 05:15:24 Measurements Intervals [place] Rate: 105 P: 41 SC: 209 QRS: -41 QRSD: 123 T: 94 QT: 451 QTc: 598 Interpretive Statements SINUS TACHYCARDIA LEFT AXIS DEVIATION LEFT ATRIAL ENLARGEMENT LEFT VENTRICULAR HYPERTROPHY AND ST-T CHANGE POOR R WAVE PROGRESSION BORDERLINE T WAVE ABNORMALITY- HIGH LATERAL LEADS BORDERLINE ECG No previous ECG available for comparison Electronically Signed On 02-15-2025 09:07:43 MED SURG RN by Elder Christianson D.O.
[2025-02-15 04:34] LABS: Beta-Hydroxybutyrate/Acetoace. 2.82 mmol/L (0.02-0.27)
[2025-02-15 05:08] LABS: Troponin I 0.060 ng/mL (0.000-0.034)
[2025-02-15] MEDS: INSULIN ASPART (*BKC) 100 UNITS/ML 7 UNITS SUB-Q (05:57)
[2025-02-15] MEDS: SODIUM CHLORIDE 0.9% IV 1,000 ML 999 ML IV CONT ×3 (05:57→08:01)
[2025-02-15] MEDS: ASPIRIN 81 MG CHEWABLE TABLET 324 MG PO (05:58)
[2025-02-15 06:31] LABS: Influenza A QL RT-PCR Negative (Negative); Influenza B QL RT-PCR Negative (Negative); RSV RNA, RT-PCR Negative (Negative); SARS-CoV-2 RNA PCR Negative (Negative)
[2025-02-15 07:11] LABS: Hemoglobin A1C > 14.0 % (<5.7)
[2025-02-15 07:20] LABS: Troponin I 0.060 ng/mL (0.000-0.034)
[2025-02-15 08:01] LABS: Anion Gap 18 mmol/L (4-12); Blood Urea Nitrogen 15 mg/dL (9-20); Calcium 8.9 mg/dL (8.4-10.2); Carbon Dioxide 20 mmol/L (22-30); Chloride 101 mmol/L (98-107); Cholesterol 245 mg/dL (0-200); Estimated CRCL calculation 86 ml/min; Estimated Glomerular Filt Rate > 60; Glucose 471 mg/dL (65-110); HDL Direct 42 mg/dL; Potassium 3.6 mmol/L (3.4-5.0); Sodium 139 mmol/L (137-145); Triglycerides 137 mg/dL (<150)
[2025-02-15] MEDS: INSULIN HUMAN REGULAR (*BKC) 100 UNITS in SODIUM CHLORIDE 0.9% IV 99 ML 10 UNITS IV CONT (08:06)
--- NOTE | 2025-02-15 08:08 | WPCEDHO ---
ED Hand Off Checklist All vitals saved:yes IV Site documented:yes All med administrations documented:yes Triage Note Triage Note Pt to ED due to high blood sugar 02/15/25 01:23 taking insulin, slurred speech and difficulty walking, onset 2 couple days. Allergies No Known Drug Allergies Allergy (Verified 09/06/24 13:06) other Active Medications including assessments/comments Insulin Human Regular 100 (units/ Sodium Chloride) 100 mls @ 10 mls/hr IV CONT .Q10H INOCENCIO; Protocol Last Admin: 02/15/25 08:06 Dose: 10 units/hr, 10 mls/hr Documented By: JULIANNE Co-signed By: [facility] Infusion/Titration Document 02/15/25 08:06 MLI (Rec: 02/15/25 08:06 MLI [id number]) Co-signed By Tatyana Arreaga RN Intake IV Site Peripheral Access Left Forearm Container Volume 100 Waste Amount 0 Dosing Dose Rate 10 Infusion Rate 10 Increase/Decrease Started Elapsed Time Elapsed Time ( 0m minutes) MAR IV Insulin Document 02/15/25 08:06 MLI (Rec: 02/15/25 08:06 MLI [id number]) Co-signed By Tatyana Arreaga RN Reason for Administration IV Insulin Infusion DKA Protocol - Reason for Administration Blood Glucose Random Glucose Yes Ordered IV Insulin Action/Checks IV Insulin Action Initiated Administered/Completed Medications Discontinued Medications Aspirin (Aspirin 81 Mg Chewable Tablet) 324 mg PO ONCE STA Stop: 02/15/25 05:11 Last Admin: 02/15/25 05:58 Dose: 324 mg Documented By: SEVERIANO Sodium Chloride (Normal Saline Iv) 1,000 mls @ 999 mls/hr IV CONT .Q1H1M STA Stop: 02/15/25 04:58 Last Infusion: 02/15/25 08:07 Dose: Infused Documented By: Admin: 02/15/25 05:57 Dose: 999 mls/hr Documented By: SEVERIANO Sodium Chloride (Normal Saline Iv) 1,000 mls @ 999 mls/hr IV CONT .Q1H1M STA Stop: 02/15/25 04:59 Last Infusion: 02/15/25 08:07 Dose: Infused Documented By: Admin: 02/15/25 05:57 Dose: 999 mls/hr Documented By: SEVERIANO Sodium Chloride (Normal Saline Iv) 1,000 mls @ 999 mls/hr IV CONT .Q1H1M STA Stop: 02/15/25 07:40 Last Admin: 02/15/25 08:01 Dose: 999 mls/hr Documented By: MLI Insulin Aspart (Insulin Aspart (*Bkc) 100 Units/Ml) 7 units SUB-Q ONCE ONE Stop: 02/15/25 04:23 Last Admin: 02/15/25 05:57 Dose: 7 units Documented By: SEVERIANO Co-signed By: THA Interventions/Assessments General Assessment Start: 02/15/25 01:21 Freq: Status: Active Protocol: Document 02/15/25 06:58 LLG (Rec: 02/15/25 06:59 LLG [id number]) GA Neurological Assessment Neurological No Assessment WNL Level of Alert,Awake Consciousness Behavior Impulsive,Uncooperative Patient Able to Comprehend Comprehension Memory Description Intact Ability to Maintain Impaired Balance Facial Symmetry Symmetrical Speech Pattern Clear GA HEENT Assessment HEENT Assessment WNL Yes GA Cardiovascular Assessment Cardiovascular Yes Assessment WNL GA Gastrointestinal Assessment Gastrointestinal Yes Assessment WNL GA Genitourinary Assessment Genitourinary WNL Parameters GA Reproductive Assessment Reproductive Yes Assessment WNL GA Integumentary Assessment Integumentary Yes Assessment WNL IV / Saline Lock, Insert Start: 02/15/25 02:41 Freq: STAT Status: Complete Protocol: Document 02/15/25 07:04 LLG (Rec: 02/15/25 07:05 ENMAG [id number]) IV Assessment Peripheral Access Right Antecubital IV Catheter Access Initiated IV Insertion Date 02/15/25 IV Insertion Time 07:05 Catheter Gauge 20 IV Insertion 1 Attempts IV Site Assessment WNL IV Care and WNL Maintenance Last Vital Signs Temperature 98.8 F 02/15/25 08:00 Pulse Rate 105 H 02/15/25 08:00 Respiratory Rate 21 H 02/15/25 08:00 Pulse Oximetry 97 02/15/25 08:00 Blood Pressure 146/71 H 02/15/25 08:00 Blood Pressure Mean 96 02/15/25 08:00 Blood Pressure Position Sitting 02/15/25 01:28 Weight 103.5 kg 02/15/25 06:51 Last Result - Abnormals Only WBC 12.0 K/mm3 (4.5-10.0) H 02/15/25 03:46 MPV 10.6 fl (7.4-10.4) H 02/15/25 03:46 Neut % (Auto) 89.3 % (45.5-73.1) H 02/15/25 03:46 Lymph % (Auto) 8.2 % (18.3-44.2) L 02/15/25 03:46 [place] % (Auto) 1.9 % (2.6-8.5) L 02/15/25 03:46 Absolute Neuts (auto) 10.7 K/mm3 (1.3-6.7) H 02/15/25 03:46 Sodium 136 mmol/L (137-145) L 02/15/25 03:46 Chloride 97 mmol/L (98-107) L 02/15/25 03:46 Carbon Dioxide 20 mmol/L (22-30) L 02/15/25 06:45 Anion Gap 18 mmol/L (4-12) H 02/15/25 06:45 Glucose 471 mg/dL (65-110) H 02/15/25 06:45 POC Capillary Glucose 447 mg/dl (65-105) H 02/15/25 06:56 Hemoglobin A1c > 14.0 % (<5.7) H 02/15/25 06:45 Troponin I 0.060 ng/mL (0.000-0.034) H* 02/15/25 06:45 Cholesterol 245 mg/dL (0-200) H 02/15/25 06:45 Beta-Hydroxybutyrate/Acetoacetate 2.82 mmol/L (0.02-0.27) H 02/15/25 03:46 Urine Protein 2+ mg/dL (Negative) H 02/15/25 03:59 Urine Glucose (UA) 3+ mg/dL (Negative) H 02/15/25 03:59 Urine Ketones 2+ mg/dL (Negative) H 02/15/25 03:59 Most Recent Suicide Severity Rating Suicide Severity Rating NO RISK INDICATED 02/15/25 01:23
[2025-02-15] MEDS: KCL 20 MEQ/D5/0.45% SOD CHL 1,000 ML 150 ML IV CONT (09:13)
[2025-02-15] MEDS: SODIUM CHLORIDE 0.9% IV 1,000 ML 150 ML IV CONT (09:13)
--- NOTE | 2025-02-15 11:37 | WPDCNINT2 ---
Assessment and Plan Assessment and plan (1) Hyperglycemia due to diabetes mellitus: Code(s): E11.65 - Type 2 diabetes mellitus with hyperglycemia Status: Acute (2) Dysarthria: Code(s): R47.1 - Dysarthria and anarthria Status: Acute (3) DKA (diabetic ketoacidosis): Code(s): E11.10 - Type 2 diabetes mellitus with ketoacidosis without coma Status: Acute Plan 1. Neurologically: This patient since I have abnormal rzwoqx-az-wvwy exam on the left side and apparently had difficulty ambulating which raised the possibility of a cerebellar stroke. Certainly hyperglycemia could cause neurological symptoms but they since to be more specific on this patient. Patient will eventually need an MRI but our device is not compatible with fluid pumps and heart monitoring and therefore will have to wait until his hyperglycemia/DKA improves. Will continue with aspirin and Plavix which are medications that he already takes. Will obtain echocardiogram with bubble study as well. We will also start him on Lipitor. 2. Cardiovascular: Patient has history of hypertension and coronary artery disease. He is on Coreg and lisinopril as well as aspirin and Plavix. There is no evidence of any cardiac decompensation at this point. Patient denies chest pain. EKG shows LVH by voltage criteria. Minimally elevated troponin is of no clinical consequence. 3. Respiratory: No symptoms. No tobacco. 4. GI: He has some nausea and vomiting is earlier but right now he is thirsty so will start him on ice and water and see how he does, advanced diet if tolerated. 5. and Renal: BUN and creatinine are normal with sodium level 136 which corrects to 146 with his glucose. Will continue with IV fluids and repeat chemistries. 6. Endocrine: Uncontrolled hyperglycemia with mild DKA. This patient hemoglobin A1c is over 14 which is more consistent with blood sugars in the high 300s to low 400. He does not check his sugars. He was started on insulin drip because of mild anion gap acidosis which goes along with his nausea vomiting and mildly elevated beta hydroxybutyrate peers suspect that he will not take long to control. He has been using 35 units of Lantus at night plus glyburide. Will eventually need significant more insulin than that. No history of thyroid disease 7. Hematologically quite also count is mildly elevated with high hemoglobin which is poorly related to hemoconcentration your platelet count is 244 8. DVT prophylaxis will add Lovenox. 9. Id no definite evidence off infection at present time. Spoke in length with the family [employer] Operator Consult Note Consult date: 02/15/25 Time Seen: 11:37 Reason for consult: Severe hyperglycemia, volume depletion, mild DKA, possible stroke HPI: Da Damon is a 59 year old male with history of diabetes mellitus, hypertension, coronary artery disease status post cardiac stents who is been having difficulty ambulating for the last day or so. Today he was noticed to have some slower speech and came to the emergency room where he was found to have an abnormal stroke scale. He underwent CT scan/CTA of the brain which did not show any significant abnormality. He was found to have a blood sugar over 500 with mild beta hydroxybutyrate elevation so he was started on insulin drip and brought to the ICU. His mental status is have improved since that time he has was able to speak without any definite limitation however he is slow to answer questions and sometimes inappropriate in his answers. According to the , he has had some difficulty with depth perception, and previously mentioned with ambulation which raise the possibility of a cerebellar stroke. Patient is scheduled for MRI but he can have it until he is off the drips. Review of Systems Constitutional: Constitutional: Reports as per HPI Eyes: Eyes: Reports blurry vision Cardiovascular: Cardiovascular: Reports no additional cardiovascular complaints Respiratory: Respiratory: Reports no additional respiratory complaints Gastrointestinal: Gastrointestinal: Reports as per HPI, Reports no additional gastrointestinal complaints, Reports nausea and Reports vomiting Genitourinary: Genitourinary: Reports no additional male genitourinary complaints Integumentary/Breasts: Skin/Breast: Reports system reviewed and no additional complaints, except as docu Neurologic: Reports as per HPI, Reports Abnormal speech present and Reports abnormal gait Psychiatric: Psychiatric: Reports no additional psychiatric complaints [facility] Past Medical History Medical History Myocardial infarct Insulin dependent diabetes mellitus Family History Family History (Updated 02/15/25 @ 09:33 by Bethany Dumont RN) Father Heart attack Other Diabetes mellitus Social History Social History Smoking packs per day: 2 Smoking cigarettes per day: 40.0 Years smoked: 10 Smoking pack-years: 20.00 Smoking status: Former smoker Alcohol intake: current Drinks per week: 1 Substance use: never Lack of Transportation: No Lack of Food: Never True Current Housing: I Have Housing Concerned About Future Housing: No Difficulty Paying Gas/Electric Bills: No Difficulty Paying for Meds: No Currently Unemployed: No Education: Bachelor's Degree Difficulty w/ Childcare or Family Care: No Living arrangements: with family Spiritual care concerns: No Meds Home Medications and Allergies Home Medications ?Medication ?Instructions ?Recorded ?Confirmed ?Type clindamycin HCl 300 mg capsule 300 mg PO Q8H 10 days #30 caps 09/06/24 Rx mupirocin 2 % topical ointment 1 applic topical BID #15 grams 09/06/24 Rx sulfamethoxazole 800 1 tablet PO Q12H 10 days #20 tabs 09/06/24 Rx mg-trimethoprim 160 mg tablet carvedilol 6.25 mg tablet 6.25 mg PO Q12H 02/15/25 02/15/25 History clopidogrel 75 mg tablet 75 mg PO DAILY 02/15/25 02/15/25 History fenofibrate nanocrystallized 145 145 mg PO DAILY 02/15/25 02/15/25 History mg tablet glyburide 5 mg tablet 5 mg PO BID 02/15/25 02/15/25 History insulin glargine 100 unit/mL 30 unit subcut QPM 02/15/25 02/15/25 History subcutaneous solution (Lantus U-100 Insulin) lisinopril 10 mg tablet 10 mg PO DAILY 02/15/25 02/15/25 History Allergies Allergy/AdvReac Type Severity Reaction Status Date / Time No Known Drug Allergies Allergy other Verified 02/15/25 09:31 Vital Signs Vital Signs - 24 hr 02/15/25 01:28 02/15/25 06:02 02/15/25 08:00 Temperature 97.4 F L 97.8 F 98.8 F Pulse Rate 99 104 H 105 H Respiratory Rate 16 13 21 H Blood Pressure 177/82 H 167/78 H 146/71 H Pulse Oximetry 97 95 97 Exam Const: General: comfortable HENMT: Mouth: Yes dry mucous membranes Eyes: General: appearance normal, both eyes and all related structures Neck: Neck: no JVD Resp: Effort & Inspection: normal respiratory effort Cardio: Rate: regular rate Rhythm: regular rhythm GI: GI Palp: Yes Soft to palpation Auscultation: normal bowel sounds Skin: General skin exam: normal color Neuro: Motor exam (neuro): 5/5 motor strength present throughout Other: Patient is awake and alert but sometimes with inappropriate answers. Even though he is symmetric regarding his transfer he does have some difficulty with nose to finger exam on the left side. Ambulation was not tested Extrem: General: normal to inspection Results Labs 02/15/25 03:46 02/15/25 11:25 Labs: Short CBC 02/15/25 Range/Units 03:46 WBC 12.0 H (4.5-10.0) K/mm3 Hgb 17.4 (14.0-18.0) g/dL Hct 50.6 (42.0-52.0) % Plt Count 244 (150-375) k/mm3 BMP 02/15/25 02/15/25 03:46 06:45 Sodium 136 L 139 Potassium 3.8 3.6 Chloride 97 L 101 Carbon Dioxide 25 20 L BUN 15 15 Creatinine 1.01 1.01 Glucose 527 H* 471 H Calcium 9.4 8.9 Cardiac Enzymes 02/15/25 02/15/25 02/15/25 Range/Units 03:46 03:46 06:45 Troponin I 0.060 H* Cancelled 0.060 H* (0.000-0.034) ng/mL Liver Function 02/15/25 Range/Units 03:46 Total Bilirubin 0.9 (0.2-1.3) mg/dL AST 28 (17-59) U/L ALT 27 (6-50) U/L Alkaline Phosphatase 42 (38-126) U/L Albumin 4.5 (3.5-5.1) g/dL Urine 02/15/25 Range/Units 03:59 Urine Color Yellow (Yellow) Urine Appearance Clear (Clear) Urine pH 5.5 (5.0-9.0) Ur Specific [place] 1.033 (1.001-1.035) Urine Protein 2+ H (Negative) mg/dL Urine Glucose (UA) 3+ H (Negative) mg/dL Critical Care Time Critical Care Time Critical Care Time: Yes Time Type: Intermittent Initial evaluation, discuss w/ involved parties, attempting to gather old records: 15 minutes Documenting medical record: 10 minutes Review of results (EKG's, labs, imaging): 5 minutes Serial repeat bedside evaluation: 10 minutes Discussing case with multiple memebers of the care team and consultants: 10 minutes Total Critical Care Time: 50
[2025-02-15 11:51] LABS: MRSA (PCR) NOT DETECTED (NOT DETECTE)
--- NOTE | 2025-02-15 12:01 | PM.IMHP2 ---
H&P: HPI History of Present Illness Date/Time: 02/15/25 12:01 Chief Complaint: Elevated blood sugar Narrative: 59-year-old male past medical history of coronary artery disease, type 2 diabetes who presented to the ER on account of elevated blood sugar and gait imbalance the past few days Patient reported his blood sugar usually goes up during stress has been having lots of stress recently. Noted gait imbalance the past few days and questionable slurred speech. Otherwise denies any chest pain shortness of breath abdominal pain diarrhea dysuria. Note that he has been adherent to his insulin regimen at home. Er Evaluation notable for vital signs stable and within normal limits. Labs notable for BG 527, ANion gap >14, started on DKA protocol CTA head and neck CT head unremarkable Chest x-ray no acute changes. Review of Systems Review of Systems: All other systems reviewed and negative except as noted in the history above. [facility] Past Medical History Medical History Myocardial infarct Insulin dependent diabetes mellitus Family History Family History (Updated 02/15/25 @ 09:33 by Bethany Dumont RN) Father Heart attack Other Diabetes mellitus Social History Social History Smoking packs per day: 2 Smoking cigarettes per day: 40.0 Years smoked: 10 Smoking pack-years: 20.00 Smoking status: Former smoker Alcohol intake: current Drinks per week: 1 Substance use: never Lack of Transportation: No Lack of Food: Never True Current Housing: I Have Housing Concerned About Future Housing: No Difficulty Paying Gas/Electric Bills: No Difficulty Paying for Meds: No Currently Unemployed: No Education: Bachelor's Degree Difficulty w/ Childcare or Family Care: No Living arrangements: with family Spiritual care concerns: No Meds Home Medications and Allergies Home Medications ?Medication ?Instructions ?Recorded ?Confirmed ?Type clindamycin HCl 300 mg capsule 300 mg PO Q8H 10 days #30 caps 09/06/24 02/15/25 Rx Held on 02/15/25. Instructions: .Provider Order mupirocin 2 % topical ointment 1 applic topical BID #15 grams 09/06/24 02/15/25 Rx Held on 02/15/25. Instructions: .Provider Order sulfamethoxazole 800 1 tablet PO Q12H 10 days #20 tabs 09/06/24 02/15/25 Rx mg-trimethoprim 160 mg tablet Held on 02/15/25. Instructions: .Provider Order carvedilol 6.25 mg tablet 6.25 mg PO Q12H 02/15/25 02/15/25 History clopidogrel 75 mg tablet 75 mg PO DAILY 02/15/25 02/15/25 History fenofibrate nanocrystallized 145 145 mg PO DAILY 02/15/25 02/15/25 History mg tablet glyburide 5 mg tablet 5 mg PO BID 02/15/25 02/15/25 History insulin glargine 100 unit/mL 30 unit subcut QPM 02/15/25 02/15/25 History subcutaneous solution (Lantus U-100 Insulin) lisinopril 10 mg tablet 10 mg PO DAILY 02/15/25 02/15/25 History Allergies Allergy/AdvReac Type Severity Reaction Status Date / Time No Known Drug Allergies Allergy other Verified 02/15/25 09:31 Vital Signs Vital Signs - 24 hr 02/15/25 01:28 02/15/25 06:02 02/15/25 08:00 Temperature 97.4 F L 97.8 F 98.8 F Pulse Rate 99 104 H 105 H Respiratory Rate 16 13 21 H Blood Pressure 177/82 H 167/78 H 146/71 H Pulse Oximetry 97 95 97 Exam Narrative: General: alert and comfortable Eyes: EOMI, PERRLA ENNT External ears normal, Neck is supple, no masses, Respiratory systems: Clear to auscultation Cardiovascular S1, S2, normal rhythm, no murmur, rub, or gallop; no thrill or palpable murmurs on palpation. Gastrointestinal: soft, non-tender, and non-distended abdomen with no masses; BS present Skin: no rash, lesions, ulcerations, subcutaneous nodules or induration Musculoskeletal: no abnormality and no tenderness, normal ROM Neurologic: Alert and oriented x3, non focal Mental Status Exam: normal affect Results Labs Labs: Short CBC 02/15/25 Range/Units 03:46 WBC 12.0 H (4.5-10.0) K/mm3 Hgb 17.4 (14.0-18.0) g/dL Hct 50.6 (42.0-52.0) % Plt Count 244 (150-375) k/mm3 [facility] 02/15/25 02/15/25 03:46 06:45 Sodium 136 L 139 Potassium 3.8 3.6 Chloride 97 L 101 Carbon Dioxide 25 20 L BUN 15 15 Creatinine 1.01 1.01 Glucose 527 H* 471 H Calcium 9.4 8.9 Cardiac Enzymes 02/15/25 02/15/25 02/15/25 Range/Units 03:46 03:46 06:45 Troponin I 0.060 H* Cancelled 0.060 H* (0.000-0.034) ng/mL Liver Function 02/15/25 Range/Units 03:46 Total Bilirubin 0.9 (0.2-1.3) mg/dL AST 28 (17-59) U/L ALT 27 (6-50) U/L Alkaline Phosphatase 42 (38-126) U/L Albumin 4.5 (3.5-5.1) g/dL Urine 02/15/25 Range/Units 03:59 Urine Color Yellow (Yellow) Urine Appearance Clear (Clear) Urine pH 5.5 (5.0-9.0) Ur Specific [place] 1.033 (1.001-1.035) Urine Protein 2+ H (Negative) mg/dL Urine Glucose (UA) 3+ H (Negative) mg/dL Assessment and Plan Assessment and plan (1) DKA (diabetic ketoacidosis): Code(s): E11.10 - Type 2 diabetes mellitus with ketoacidosis without coma Status: Acute Plan DKA Patient noted elevated Blood sugar Labs notable for Anion gap >14 and BG 527, Butyrate elevated COntineu IVF and Insulin infusion per DKA protocol Monitor in the ICU Gait disturbance and slurred speech CT head showed age indeterminate infarct CTA head and neck unremarkable MRI, ECHO, Lipid panel, A1c pending Aspirin, plavix, statin PT/OT/ST Neurology consulted Elevated troponin ECHO pending, trend troponin Cardiology consulted CAD s/p stents COntinue antiplatelets and statin, Metoprolol DVT prophylaxis on Sq Lovenox FUll code Karlie Damon
[2025-02-15 12:05] LABS: Anion Gap 6 mmol/L (4-12); Blood Urea Nitrogen 14 mg/dL (9-20); Calcium 8.6 mg/dL (8.4-10.2); Carbon Dioxide 26 mmol/L (22-30); Chloride 110 mmol/L (98-107); Estimated CRCL calculation 98 ml/min; Estimated Glomerular Filt Rate > 60; Glucose 185 mg/dL (65-110); Potassium 3.1 mmol/L (3.4-5.0); Sodium 142 mmol/L (137-145)
[2025-02-15] MEDS: LACTATED RINGERS 1,000 ML 100 ML IV CONT (12:09)
[2025-02-15] MEDS: CLOPIDOGREL BISULFATE 75 MG TABLET PO (12:09)
[2025-02-15] MEDS: INSULIN GLARGINE (*BKC) 100 UNITS/ML 40 UNITS SUB-Q (12:27)
[2025-02-15] MEDS: POTASSIUM CHLORIDE 20 MEQ ER TABLET 40 MEQ PO (12:35)
--- NOTE | 2025-02-15 13:44 | ADMGEN ---
This patient, Da Damon, was admitted to Intensive Care Unit-5 at approximately 0900. Patient/family oriented to hospital policies and general routines including ID bracelet, bed and alarms, visiting hours, pain management, procedures, bathroom and other care routines, personal items, smoking policy, room service/diet, and visiting hours. Information on how to activate the Rapid Response Team has been discussed. Patient/Family are encouraged to report perceived risks to care and to ask questions if they do not understand what they are told or what they should do.
--- NOTE | 2025-02-15 13:53 | P.CONCA_ITS ---
Assessment and Plan Assessment and plan (1) Elevated troponin: Code(s): R79.89 - Other specified abnormal findings of blood chemistry Status: Acute Plan 59-year-old man with known coronary disease previous PCI details of which are unknown to me. He for reasons that are not clear is not actively following with any of the data analytics specialist to intervened on his coronaries in the past. The current issue at hand is a very small rise in troponin level which is of course not surprising in the setting of low-level ketoacidosis. I would agree with the retail pharmacy technician opinion that this is not of clinical significance and does not merit ischemia workup while he is here in the hospital. Recommended to the patient and his family that he speak to his PCP in [place] following discharge to reestablish active cardiac follow-up given his history of coronary disease. Zeus Hull MD [facility] History of Present Illness History of Present Illness Consult date/time: 02/15/25 13:53 Reason For Visit: HHS, Possible CVA; NSTEMI Narrative: This is a 59-year-old man I am seeing at the request of the hospitalist because of elevated troponin level. The patient is unknown to me prior to this encounter and was seen in the ICU with his family in the room at in attendance. He apparently was brought to the hospital from his home where he was found to be in a altered mental status with confusion difficulty speaking correctly and was brought to the emergency room for evaluation with the concern that he might be having a stroke. He apparently has a history of coronary artery disease in his indicated that he had similar symptoms in the past when he suffered a myocardial infarction. Presumably for this reason troponin levels were ordered and they were barely out of normal range at 0.06. There was no complaint of any chest pain the electrocardiogram shows sinus rhythm with voltage evidence of LVH but no evidence of acute injury. He was found to be markedly hyperglycemic and in low-grade ketoacidosis with a blood glucose of over 500 when he came into the emergency room. For that reason he was placed into the ICU for evaluation and management. His mental status apparently seems to be clearing as he comes under better state of glycemic control and he has no complaints at this time. He reports that he has a history of coronary artery disease with 2 procedures that have been done stenting his coronary arteries I do not have records of either of those procedures the most recent 1 he believes was done in [facility] he does not actively follow with a data analytics specialist for reasons that are unclear. In addition to his coronary disease he has the obvious history of diabetes and hypertension his diabetes is poorly controlled with an A1c of over 14. The retail pharmacy technician note has been reviewed and the correctly indicate the minimal troponin elevation is not of any clinical importance. Review of Systems 2 Review of Systems: Review of systems not reliable given his confusional/mental status ROS unobtainable: Yes unobtainable due to mental status PMFSH Past Medical History Medical History Myocardial infarct Insulin dependent diabetes mellitus Family History Family History (Updated 02/15/25 @ 09:33 by Bethany Dumont RN) Father Heart attack Other Diabetes mellitus Social History Social History Smoking packs per day: 2 Smoking cigarettes per day: 40.0 Years smoked: 10 Smoking pack-years: 20.00 Smoking status: Former smoker Alcohol intake: current Drinks per week: 1 Substance use: never Lack of Transportation: No Lack of Food: Never True Current Housing: I Have Housing Concerned About Future Housing: No Difficulty Paying Gas/Electric Bills: No Difficulty Paying for Meds: No Currently Unemployed: No Education: Bachelor's Degree Difficulty w/ Childcare or Family Care: No Living arrangements: with family Spiritual care concerns: No Meds Home Medications and Allergies Home Medications ?Medication ?Instructions ?Recorded ?Confirmed ?Type clindamycin HCl 300 mg capsule 300 mg PO Q8H 10 days # 30 caps 09/06/24 02/15/25 Rx Held on 02/15/25. Instructions: .Provider Order mupirocin 2 % topical ointment 1 applic topical BID #1 5 grams 09/06/24 02/15/25 Rx Held on 02/15/25. Instructions: .Provider Order sulfamethoxazole 800 1 tablet PO Q12H 10 days #20 tabs 09/06/24 02/15/25 Rx mg-trimethoprim 160 mg tablet Held on 02/15/25. Instructions: .Provider Order carvedilol 6.25 mg tablet 6.25 mg PO Q12H 02/15/25 History clopidogrel 75 mg tablet 75 mg PO DAILY 02/15/2501/22 History fenofibrate nanocrystallized 145 145 mg PO DAILY 02/1502/15/25 History mg tablet glyburide 5 mg tablet 5 mg PO BID 02/15/25 5 History insulin glargine 100 unit/mL 30 unit subcut QPM 02/15/25 History subcutaneous solution (Lantus U-100 Insulin) lisinopril 10 mg tablet 10 mg PO DAILY 02/15/2501/22 History Allergies Allergy/AdvReac Type Severity Reaction Status Date / Time No Known Drug Allergies Allergy other Verified 02/15/25 09:31 Vital Signs Vital Signs - 24 hr 02/15/25 01:28 02/15/25 06:02 02/15/25 08:00 Temperature 36.3 C L 36.6 C 37.1 C Pulse Rate 99 104 H 105 H Respiratory Rate 16 13 21 H Blood Pressure 177/82 H 167/78 H 146/71 H Pulse Oximetry 97 95 97 02/15/25 12:35 Temperature Pulse Rate 107 H Respiratory Rate Blood Pressure Pulse Oximetry Exam 2 Const: Other: Overweight white male appearing older than his stated age somewhat agitated shifting around in bed HENMT: Mouth: Yes moist mucous membranes Eyes: Sclera: sclerae normal Neck: Neck: supple Resp: Effort & Inspection: normal respiratory effort Auscultation: clear to auscultation bilaterally Cardio: Rate: regular rate Rhythm: regular rhythm Other: PMI is not displaced no audible murmur or gallop GI: GI Palp: Yes Soft to palpation Auscultation: normal bowel sounds Skin: General skin exam: normal color Neuro: Other: Alert and oriented and responsive some answers are inappropriate Extrem: General: normal to inspection Results Labs and Meds 02/15/25 03:46 02/15/25 11:25 Lab results: Cardiac Enzymes 02/15/25 02/15/25 02/15/25 Range/Units 03:46 03:46 06:45 AST 28 (17-59) U/L Troponin I 0.060 H* Cancelled 0.060 H* (0.000-0.034) ng/mL Lipids 02/15/25 02/15/25 02/15/25 Range/Units 06:45 06:45 06:45 Triglycerides 137 Cancelled (<150) mg/dL Cholesterol 245 H Cancelled (0-200) mg/dL CBC 02/15/25 Range/Units 03:46 WBC 12.0 H (4.5-10.0) K/mm3 RBC 5.62 (4.6-6.20) M/mm3 Hgb 17.4 (14.0-18.0) g/dL Hct 50.6 (42.0-52.0) % Plt Count 244 (150-375) k/mm3 Lymph # (Auto) 0.99 (0.9-3.2) K/mm3 [place] # (Auto) 0.2 (0.1-0.6) K/mm3 Eos # (Auto) 0.0 (0-0.3) K/mm3 Baso # (Auto) 0.1 (0.0-0.1) K/mm3 Comprehensive Metabolic Panel 02/15/25 02/15/25 02/15/25 Range/Units 03:46 06:45 11:25 Sodium 136 L 139 142 (137-145) mmol/L Potassium 3.8 3.6 3.1 L (3.4-5.0) mmol/L Chloride 97 L 101 110 H (98-107) mmol/L Carbon Dioxide 25 20 L 26 (22-30) mmol/L BUN 15 15 14 (9-20) mg/dL Creatinine 1.01 1.01 0.84 (0.7-1.3) mg/dL Glucose 527 H* 471 H 185 H (65-110) mg/dL Calcium 9.4 8.9 8.6 (8.4-10.2) mg/dL AST 28 (17-59) U/L ALT 27 (6-50) U/L Alkaline Phosphatase 42 (38-126) U/L Total Protein 7.6 (6.3-8.2) g/dL Albumin 4.5 (3.5-5.1) g/dL Intake and Output 02/14/25 02/15/25 02/15/25 23:59 07:59 15:59 Intake Total 2202.5 Balance 2202.5 Intake: IV 2202.5 Insulin Human Regular (*Bkc) 40.0 100 units In Sodium Chloride 0. 9% IV 99 ml @ 10 UNITS/HR 10 mls/hr IV CONT .Q10H INOCENCIO Rx#: [id number] KCl 20 Meq/D5/0.45% Sod Chl 1, 2.5 000 ml @ 150 mls/hr IV CONT . Q6H40M INOCENCIO Rx#:[id number] Sodium Chloride 0.9% IV 1,000 2160 ml @ 150 mls/hr IV CONT .Q6H40M INOCENCIO Rx#:[id number] Patient Weight 02/15/25 23:59 Weight 103.5 kg
--- NOTE | 2025-02-15 15:20 | PCPTNOTE ---
1500--HOLD PT evaluation, discussed pt with ERENDIRA Sims, pt is having nausea and some pressure and pain in his head.
--- NOTE | 2025-02-15 19:01 | ECG_ITS ---
Test Date: 2025-02-15 19:07:42 Measurements Intervals [place] Rate: 124 P: 218 NV: 146 QRS: -28 QRSD: 124 T: 134 QT: 301 QTc: 433 Interpretive Statements SINUS TACHYCARDIA INTRAVENTRICULAR CONDUCTION DELAY DELAYED PRECORDIAL R/S TRANSITION LEFT VENTRICULAR HYPERTROPHY WITH ST-T CHANGE ST ELEVATION IN ANTEROSEPTAL LEADS- CONSIDER ACUTE INJURY OR DUE TO LVH BASELINE ARTIFACT- AVR, AVL, AVF, V2, V4-V6 ABNORMAL ECG Compared to ECG 02/15/2025 05:15:24 HEART RATE HAS INCREASED ST ELEVATION IN ANTEROSEPTAL LEADS NOW PRESENT Electronically Signed On 02-15-2025 19:53:49 ACCOUNT ADJUSTER by Elder Christianson D.O.
--- NOTE | 2025-02-15 19:25 | PCRCNOTE ---
Delay of stat abg due to patient being moved from 3 med/surg to icu.
--- NOTE | 2025-02-15 19:42 | P.RRN_ITS ---
Critical Care Event Note Summary Code activated: No Narrative: Rapid response initiated around 18:50. Patient had episode of vomiting and aspiration. 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 Had an episode of vomiting and aspiration chest prior to the rapid response. Subsequently developed respiratory distress, tachycardia, and mottling of the skin (primarily in the left lower extremity). Initial assessment of his vital signs showed a pulse ox in the 80s on room air. He was promptly placed on a non-rebreather at 15L and improved to 97%. HR remained elevated in the 130s despite correction in his hypoxia. Respiratory to the bedside who performed deep suctioning. Audible coarse breath sounds improved post intervention. Physical exam showed the patient to have coarse breath sounds in all lung nava, mottling (blanches) to his left lower extremity with 2+ DP pulse bilaterally, regular rhythm but tachycardic in the 130s. Abdomen unremarkable. Speech clear and remains A&O x4. Given risk of decompensation the patient was transferred back to ICU 5 at IMU status. Stat ABG, CXR, and EKG were ordered. EKG showed ectopic atrial tachycardia, rate 124, moderate IVC delay, ST elevation probably early repolarization, ST deviation moderate T-wave abnormality consider lateral ischemia. Per my assessment there are new mild ST depression in multiple leads. Suspect this is secondary to tachycardia and hypoxic event/demand ischemia. Will check troponin and add BNP. CXR impression as developing bilateral airspace disease, most likely pulmonary edema. Fluids held. However given aspiration event, more likely developing pneumonia. Patient started on Unasyn 3 g q.6h. Pulmonary toileting Q2H. Patient transitioned back to NPO, glucose checks q.6 hours, sliding scale q.[address] evaluation. Here for difficulty ambulating, changes in speech, and hyperglycemia. He was admitted to the ICU for DKA. With improvement in his glucose, mental status improved and speech improved. However he was noted to have a slowed response and intermittent inappropriate answers to questions. had reported he had some difficulty with depth perception and changes in his ambulation. MRI indicated, however he was unable to undergo this test until he was off of the drips. Has since been transitioned to MedSurg this afternoon at is now on sliding scale/Lantus. Code status reviewed: Full code This case had a high probability of a clinically significant, sudden, or life threatening deterioration of this patient's condition which required my full and direct attention, intervention and personal management. Critical care time: 30 - 74 mins
[2025-02-15 19:53] LABS: Alveolar/Arterial O2 Gradient 559.3 mmHg; Fractional Inspired Oxygen 100 %; HCO3 ABG 22.6 mEq/l (22.0-26.0); Oxygen Content ABG 21.9 %vol (16.0-22.0); Oxygen Saturation ABG 97.5 % (95.0-100.0); PCO2 ABG 45.8 mmHg (35.0-45.0); PO2 ABG 107.9 mmHg (80.0-100.0); PO2 FiO2 Ratio Arterial Blood 1.08 %
[2025-02-15 19:54] LABS: Site Drawn RIGHT BRACHIAL
[2025-02-15 19:55] LABS: Liters per Minute 15.0 LPM
[2025-02-15] MEDS: AMPICILLIN SODIUM/SULBACTAM 3 GM in SODIUM CHLORIDE 0.9% IV 100 ML 200 ML IVPB (20:08)
[2025-02-15 20:46] LABS: Alanine Aminotransferase 23 U/L (6-50); Albumin Level 3.6 g/dL (3.5-5.1); Alkaline Phosphatase 36 U/L (38-126); Anion Gap 9 mmol/L (4-12); Aspartate Amino Transferase 29 U/L (17-59); Bilirubin,Total 0.6 mg/dL (0.2-1.3); Blood Urea Nitrogen 14 mg/dL (9-20); Calcium 8.1 mg/dL (8.4-10.2); Carbon Dioxide 24 mmol/L (22-30); Chloride 104 mmol/L (98-107); Estimated CRCL calculation 93 ml/min; Estimated Glomerular Filt Rate > 60; Glucose 387 mg/dL (65-110); Magnesium 1.7 mg/dL (1.6-2.3); Potassium 3.7 mmol/L (3.4-5.0); Sodium 137 mmol/L (137-145); Total Protein 6.3 g/dL (6.3-8.2)
--- NOTE | 2025-02-15 20:57 | ECG_ITS ---
Test Date: 2025-02-16 07:05:04 Measurements Intervals [place] Rate: 86 P: 34 TN: 211 QRS: -38 QRSD: 120 T: 153 QT: 386 QTc: 462 Interpretive Statements SINUS RHYTHM WITH FIRST DEGREE AV BLOCK LEFT AXIS DEVIATION POSSIBLE LEFT ATRIAL ENLARGEMENT INTRAVENTRICULAR CONDUCTION DELAY BORDERLINE R WAVE PROGRESSION, ANTERIOR LEADS LEFT VENTRICULAR HYPERTROPHY WITH ST-T CHANGE BORDERLINE T WAVE ABNORMALITY- LATERAL LEADS BORDERLINE ECG Compared to ECG 02/15/2025 19:07:42 HEART RATE HAS DECREASED ST ELEVATION NO LONGER PRESENT Electronically Signed On 02-16-2025 09:20:30 HEALTH INFORMATICS INSTRUCTOR by Elder Christianson D.O.
[2025-02-15 21:07] LABS: NT Pro B Type Natriuretic Pept 3990 pg/mL (19.9-100); Troponin I 0.808 ng/mL (0.000-0.034)
[2025-02-15] MEDS: FUROSEMIDE INJ 40 MG/4 ML VIAL 20 MG IV PUSH (21:39)
[2025-02-15] MEDS: ENOXAPARIN 40 MG/0.4 ML SYRINGE SUB-Q (21:40)
--- NOTE | 2025-02-15 22:23 | PC.NURSE ---
This patient, Da Damon, was received from [facility] on 02/15/25 at 1935. Patient/family oriented to unit policies and routines
[2025-02-15] MEDS: INSULIN ASPART (*BKC) 100 UNITS/ML SUB-Q (23:14)
--- NOTE | 2025-02-15 23:49 | PC.NURSE ---
This patient, Da Damon, was received from ICU-05 on 02/15/25 at 2349. Patient/family oriented to unit policies and routines.
[2025-02-16] VITALS (21 sets, daily range): BP systolic 112–166; BP diastolic 58–78; PULSE 76–98; RESP 18–22; TEMP 35.9–37; O2SAT 92–97
--- NOTE | 2025-02-16 | ECHO_ITS ---
Patient Info Name: Da Damon Age: 59 years : 1965 Gender: Male Ht: 70 in Wt: 225 lbs BSA: 2.28 m2 HR: 81 bpm BP: 166 / 63 mmHg Heart Rhythm: Sinus Rhythm Technical Quality: Fair Exam Date: 02/16/2025 12:06 PM Patient Status: I Admit Date: 02/16/2025 Exam Type: CA echo dop bubble study w con Complete two-dimentional, color flow and Doppler transthoracic echocardiogram is performed with agitated saline and with contrast to opacify the left ventricle and to improve the delineation of the left ventricle endocardial borders. Staff Referring Physician: Shilo Arenas Internal Sales Engineer: Emily Bingham Attending Provider: Antonella London DO Contrast/Agitated Saline Contrast/Ag. Saline: Definity Amount: 2.00 ml Administered By: Emily Bingham Existing IV Access: Yes IV Access Condition: patent with no signs of infiltration Contrast/Ag. Saline: Agitated Saline Amount: 20.00 ml Existing IV Access: Yes IV Access Condition: patent with no signs of infiltration Summary 1. Mild left ventricular hypertrophy with overall normal ejection fraction and grade 1 diastolic noncompliance. 2. Akinesis of the posterior segment consistent with previous infarction in that segment. 3. Mildly sclerotic aortic valve which is not stenotic. 4. Agitated saline contrast injection demonstrated no intracardiac shunt. 5. Definity contrast injected to improve visualization. Left Ventricle Left ventricular chamber dimension is normal. Left ventricular systolic function is normal, estimated at 50-55. There is mild concentric increased left ventricular wall thickness. The left ventricular diastolic function is grade I diastolic dysfunction. Right Ventricle Right ventricular chamber dimension is normal. Left Atria Left atrial chamber dimension is mildly enlarged. Right Atria Right atrial chamber dimension is normal. Aortic Valve The aortic valve is trileaflet. There is mild aortic valve sclerosis. Pulmonic Valve The pulmonic valve is normal. Mitral Valve The mitral valve has normal leaflets. Tricuspid Valve The tricuspid valve leaflets are normal. Pericardium/Pleural The pericardium appears normal. Aorta The aortic root size at the sinus of Valsalva is normal. Left Ventricular Outflow Tract Name Value Normal LVOT 2D LVOT Diameter 2.0 cm LVOT Doppler LVOT Peak Velocity 65 cm/s LVOT Peak Gradient 2 mmHg LVOT Mean Gradient 1 mmHg LVOT VTI 11 cm LVOT VTI/AV VTI Ratio 0.3 LVOT Stroke Volume 35 ml LVOT CO 2.6 l/min LVOT CI 1.1 l/min/m2 Pulmonic Valve Name Value Normal RVOT Doppler RVOT Peak Velocity 78 cm/s RVOT Peak Gradient 2 mmHg PV Doppler PV Peak Velocity 96 cm/s PV Peak Gradient 4 mmHg Mitral Valve Name Value Normal MV Diastolic Function MV E Peak Velocity 112 cm/s MV A Peak Velocity 92 cm/s MV E/A 1.2 MV Decel Time (PW) 146 ms MV Annular TDI MV E/e' (Septal) 22.7 MV E/e' (Lateral) 14.2 MV E/e' (Average) 18.5 Tricuspid Valve Name Value Normal TV Annular TDI TV Lateral Savana s' Velocity 10.4 cm/s >=9.5 Aorta Name Value Normal Ascending Aorta Ao Root Diameter (MM) 3.3 cm Ao Root Diam Index (MM) 1.4 cm/m2 Aortic Valve Name Value Normal AV Doppler AV Peak Velocity 197 cm/s AV Peak Gradient 16 mmHg AV Mean Gradient 10 mmHg AV VTI 35 cm AV Area (Cont Eq VTI) 1.0 cm2 >=3.0 AV Area (Cont Eq Jonathan) 1.0 cm2 AV DI (Jonathan) 0.33 AV Regurgitation 2D LVOT Area 3.1 cm2 Ventricles Name Value Normal LV Dimensions 2D/MM IVS Diastolic Thickness (2D) 1.0 cm 0.6-1.0 LVID Diastole (2D) 5.5 cm 4.2-5.8 LVIW Diastolic Thickness (2D) 1.0 cm 0.6-1.0 LVID Systole (2D) 3.7 cm 2.5-4.0 LVOT Diameter 2.0 cm LV Mass (2D Cubed) 210.39 g 88.00-224.00 LV Mass Index (2D Cubed) 92 g/m2 49-115 Relative Wall Thickness (2D) 0.36 <=0.42 LV Fractional Shortening/Ejection Fraction 2D/MM LV Fractional Shortening (2D) 32 % 25-43 LV EF (2D Teichholz) 60 % LV Diastolic Volume (4C MOD) 93 ml LV EF (4C MOD) 56 % LV Diastolic Volume (2C MOD) 65 ml LV EF (2C MOD) 58 % LV Diastolic Volume (BP MOD) 80 ml 62-150 LV Diastolic Volume Index (BP MOD) 35 ml/m2 34-74 LV Systolic Volume (BP MOD) 34 ml 21-61 LV Systolic Volume Index (BP MOD) 15 ml/m2 11-31 LV EF (BP MOD) 57 % 52-72 LV Diastolic Length (4C) 8.6 cm LV Systolic Length (4C) 7.4 cm LV Stroke Volume (4C MOD) 52 ml Atria Name Value Normal LA Dimensions LA Dimension (MM) 4.0 cm 3.0-4.0 LA Volume (4C A-L) 80 ml LA Volume (BP A-L) 80 ml RA Dimensions RA Area (4C) 13.3 cm2 <=18.0 Report Signatures
[2025-02-16 01:22] LABS: Troponin I 2.340 ng/mL (0.000-0.034)
[2025-02-16] MEDS: AMPICILLIN SODIUM/SULBACTAM 3 GM in SODIUM CHLORIDE 0.9% IV 100 ML 200 ML IVPB ×4 (02:10→20:50)
[2025-02-16 04:48] LABS: Hematocrit 45.6 % (42.0-52.0); Hemoglobin 15.2 g/dL (14.0-18.0); Immature Granulocyte Percent A 0.3 % (0-0.5); Lymphocytes Absolute Auto 1.94 K/mm3 (0.9-3.2); Mean Corpuscular HGB Conc 33.3 g/dl (32-36); Mean Corpuscular Hemoglobin 31.1 pg (26-34); Mean Corpuscular Volume 93.3 fl (80-100); Nucleated Red Blood Cells Absolute Auto 0.000 K/mm3 (0.0-0.012); Nucleated Red Blood Cells Perc 0.0 % (0.0-0.2); Platelet Count Result 248 k/mm3 (150-375); Red Blood Count 4.89 M/mm3 (4.6-6.20); White Blood Count 16.4 K/mm3 (4.5-10.0)
[2025-02-16 05:42] LABS: Alanine Aminotransferase 22 U/L (6-50); Albumin Level 3.6 g/dL (3.5-5.1); Alkaline Phosphatase 29 U/L (38-126); Anion Gap 5 mmol/L (4-12); Aspartate Amino Transferase 45 U/L (17-59); Bilirubin,Total 0.9 mg/dL (0.2-1.3); Blood Urea Nitrogen 18 mg/dL (9-20); Calcium 8.2 mg/dL (8.4-10.2); Carbon Dioxide 24 mmol/L (22-30); Chloride 107 mmol/L (98-107); Cholesterol 238 mg/dL (0-200); Estimated CRCL calculation 86 ml/min; Estimated Glomerular Filt Rate > 60; Glucose 296 mg/dL (65-110); HDL Direct 39 mg/dL; Magnesium 1.9 mg/dL (1.6-2.3); Potassium 3.2 mmol/L (3.4-5.0); Sodium 136 mmol/L (137-145); Total Protein 6.4 g/dL (6.3-8.2); Triglycerides 225 mg/dL (<150); Troponin I 3.010 ng/mL (0.000-0.034)
[2025-02-16 07:04] LABS: Hemoglobin A1C 13.9 % (<5.7)
[2025-02-16] MEDS: INSULIN ASPART (*BKC) 100 UNITS/ML SUB-Q ×2 (07:05→17:48)
[2025-02-16 07:38] LABS: Troponin I 3.530 ng/mL (0.000-0.034)
--- NOTE | 2025-02-16 08:18 | PC.NURSE ---
RN notified MD of pt's AM blood glucose of 286. Pt is NPO after choking episode yesterday, 02/15, and is awaiting speech evaluation prior to resuming diet. New orders May give AM dose of 40units of Lantus SQ now.
[2025-02-16] MEDS: INSULIN GLARGINE (*BKC) 100 UNITS/ML 40 UNITS SUB-Q (08:40)
--- NOTE | 2025-02-16 09:32 | P.PNIM_ITS ---
Assessment and Plan Assessment and Plan (1) DKA (diabetic ketoacidosis): Code(s): E11.10 - Type 2 diabetes mellitus with ketoacidosis without coma Status: Acute Plan DKA Patient noted elevated Blood sugar Labs notable for Anion gap >14 and BG 527, Butyrate elevated COntineu IVF and Insulin infusion per DKA protocol this has been transitioned to basal bolus regimen. A1c came back elevated at 14. Gait disturbance and slurred speech CT head showed age indeterminate infarct CTA head and neck unremarkable MRI pending, ECHO pending, Lipid panel with LDL 157, A1c 14 Aspirin, plavix, statin PT/OT/ST Neurology consulted Elevated troponin ECHO pending, trend troponin Cardiology consulted Suspected due to hyperglycemia and DKA CAD s/p stents COntinue antiplatelets and statin, Metoprolol Aspiration pneumonia on Unasyn. Speech to see. Reports some chronic orthopnea/postnasal drip. Will add Flonase nasal spray Possible pulmonary edema as noted on the chest x-ray BNP elevated. Echo already ordered received 20 mg IV dose of Lasix. Will recheck chest x-ray today. Diuresis p.r.n. DVT prophylaxis on Sq Lovenox FUll code Karlie Damon Subjective Date/time seen: 02/16/25 09:32 Interval history: Patient feeling better. Events from last night noted. Still has some cough. He does not think he aspirated on food as he has not even started eating. Family at bedside and discussed with them. Speech to see him today. Review of Systems Review of Systems: All systems reviewed & are unremarkable except as noted in HPI and below Exam Narrative: General: alert and comfortable not in acute distress Eyes: EOMI, PERRLA ENNTExternal ears normal, Neck is supple, no masses, Respiratory systems: Clear to auscultation no respiratory distress Cardiovascular S1, S2, normal rhythm, no murmur, rub, or gallop; no thrill or palpable murmurs on palpation. Gastrointestinal: soft, non-tender, and non-distended abdomen with no masses; BS present Skin: no rash, lesions, ulcerations, subcutaneous nodules or induration Musculoskeletal: no abnormality and no tenderness, normal ROM Neurologic: Alert and oriented x3, non focal Mental Status Exam: normal affect Objective Data Vital Signs Vital Signs: Vital Signs - 24 hr 02/15/25 10:00 02/15/25 10:00 02/15/25 11:00 Temperature Pulse Rate 111 H 112 H 100 Respiratory Rate 17 20 Blood Pressure 156/79 H 158/74 H Pulse Oximetry 99 96 Oxygen Delivery Oxygen Flow Rate 02/15/25 12:00 02/15/25 12:00 02/15/25 12:00 Temperature 100 F H Pulse Rate 101 H 99 Respiratory Rate 20 Blood Pressure 118/49 L Pulse Oximetry 98 Oxygen Delivery Room Air Oxygen Flow Rate 02/15/25 12:35 02/15/25 13:00 02/15/25 14:00 Temperature Pulse Rate 107 H 95 96 Respiratory Rate 22 H Blood Pressure 150/71 H Pulse Oximetry 97 Oxygen Delivery Oxygen Flow Rate 02/15/25 14:00 02/15/25 16:00 02/15/25 19:38 Temperature 98.2 F Pulse Rate 98 91 133 H Respiratory Rate 19 22 H 36 H Blood Pressure 154/72 H 161/82 H 224/120 H Pulse Oximetry 94 96 97 Oxygen Delivery Non-Rebreather Mask Oxygen Flow Rate 15 02/15/25 20:00 02/15/25 20:00 02/15/25 22:19 Temperature Pulse Rate 95 Respiratory Rate Blood Pressure Pulse Oximetry 98 96 Oxygen Delivery Non-Rebreather Mask Nasal Cannula Oxygen Flow Rate 15 3 02/15/25 22:29 02/15/25 23:50 02/15/25 23:53 Temperature 97.6 F Pulse Rate 85 85 85 Respiratory Rate 21 H 21 H Blood Pressure 153/77 H Pulse Oximetry 94 94 Oxygen Delivery Nasal Cannula Oxygen Flow Rate 3 02/16/25 00:00 02/16/25 02:00 02/16/25 03:39 Temperature Pulse Rate 84 83 86 Respiratory Rate 22 H Blood Pressure Pulse Oximetry 93 Oxygen Delivery Nasal Cannula Oxygen Flow Rate 3 02/16/25 03:45 02/16/25 04:00 02/16/25 05:53 Temperature 97.8 F Pulse Rate 86 88 81 Respiratory Rate 22 H Blood Pressure 166/63 H Pulse Oximetry 93 Oxygen Delivery Oxygen Flow Rate 02/16/25 07:36 Temperature 96.7 F L Pulse Rate 81 Respiratory Rate 18 Blood Pressure 155/73 H Pulse Oximetry 96 Oxygen Delivery Oxygen Flow Rate Intake/Output Intake/Output: Intake & Output 02/13/25 02/14/25 02/15/25 02/16/25 23:59 23:59 23:59 23:59 Intake Total 3902.5 100 Output Total 900 850 Balance 3002.5 -750 Meds/Results Medications: Active Medications Generic Name Dose Route Start Last Admin Trade Name Radha PRN Reason Stop Dose Admin Acetaminophen 650 mg 02/15/25 06:46 Acetaminophen 325 Mg Tablet PO Q4H PRN Mild Pain (1-3) or Fever Aspirin 81 mg 02/16/25 08:00 Aspirin 81 Mg Chewable Tablet PO DAILY@0800 [facility] Atorvastatin Calcium 40 mg 02/16/25 09:00 Atorvastatin 40 Mg Tablet PO DAILY [facility] Carvedilol 6.25 mg 02/15/25 12:20 02/15/25 22:29 Carvedilol 6.25 Mg Tablet PO Not Given Q12HR [facility] Clopidogrel Bisulfate 75 mg 02/16/25 09:00 Clopidogrel Bisulfate 75 Mg Tablet PO DAILY [facility] Dextrose 12.5 gm 02/15/25 06:40 Dextrose 50% 25 Gm/50 Ml Syringe IV PUSH PRN PRN Hypoglycemia Protocol Enoxaparin Sodium 40 mg 02/15/25 21:00 02/15/25 21:40 Enoxaparin 40 Mg/0.4 Ml Syringe SUB-Q 40 mg BEDTIME [facility] Administration Fenofibrate 145 mg 02/16/25 09:00 Fenofibrate 145 Mg Tablet PO DAILY [facility] Glucagon 1 mg 02/15/25 06:40 Glucagon For Inj 1 Mg Vial IM PRN PRN Hypoglycemia Protocol Glucose 15 gm 02/15/25 06:40 Glucose Oral Gel 15 Gm Of Glucse In 37.5 Gm Tube PO PRN PRN Hypoglycemia Protocol Dextrose 1,000 mls @ 100 mls/hr 02/15/25 06:40 Dextrose 5% 1,000 Ml IVPB PRN PRN Hypoglycemia Protocol Ampicillin Sodium/Sulbactam 100 mls @ 200 mls/hr 02/15/25 20:00 02/16/25 02:40 Sodium 3 gm/ Sodium Chloride IVPB Infused Q6H [facility] Infusion Insulin Aspart 5 units 02/15/25 17:00 02/15/25 17:52 Insulin Aspart (*Bkc) 100 Units/Ml SUB-Q Not Given On Hold: 02/15/25 19:58 TIDWM [facility] Protocol Insulin Aspart 5 units 02/15/25 17:00 02/15/25 17:52 Insulin Aspart (*Bkc) 100 Units/Ml 0.05 units/kg (5 units) Not Given On Hold: 02/15/25 19:58 SUB-Q TIDWM [facility] Insulin Aspart 4 - 8 units 02/16/25 00:00 02/16/25 07:05 Insulin Aspart (*Bkc) 100 Units/Ml SUB-Q 5 units Q6HR [facility] Administration Protocol Insulin Glargine 40 units 02/16/25 09:00 02/16/25 08:40 Insulin Glargine (*Bkc) 100 Units/Ml SUB-Q 40 units DAILY [facility] Administration Ondansetron HCl 4 mg 02/15/25 06:46 Ondansetron Inj 4 Mg/2 Ml Vial IV PUSH Q4H PRN Nausea Perflutren Lipid Microsphere 0 ml 02/15/25 11:28 Perflutren Lipid Microspheres 1.5 Ml Vial Diluted To 10 Ml Total Volume IV PUSH 02/18/25 11:28 ONCE PRN adequate visualization Protocol Radiology Results: ITS Impressions Head/Neck CTA 02/15/25 08:29 IMPRESSION: CT HEAD: 1. Age indeterminate infarct right parietal lobe. CTA NECK: 1. No ICA stenosis or other acute arterial abnormality. CTA HEAD: 1. No large vessel arterial occlusive disease. 2. Question focal occlusion right P2/3 junction. 3. No aneurysms. Chest X-Ray 02/15/25 19:20 Impression: 1: Developing bilateral airspace disease, most likely pulmonary edema. Labs Labs: Laboratory Results - last 24 hr 02/15/25 02/15/25 02/15/25 10:14 10:28 11:25 WBC RBC Hgb Hct MCV MCH MCHC RDW Plt Count MPV Immature Gran % (Auto) Neut % (Auto) Lymph % (Auto) Cooper % (Auto) Eos % (Auto) Baso % (Auto) Lymph # (Auto) Cooper # (Auto) Eos # (Auto) Baso # (Auto) Abs Immat Gran (auto) Absolute Neuts (auto) Absolute Nucleated RBC Nucleated RBC % Puncture Site ABG pH ABG pCO2 ABG pO2 ABG PO2/FiO2 Ratio ABG HCO3 ABG O2 Saturation ABG O2 Content ABG Base Excess A-a Gradient Oxyhemoglobin Total Hemoglobin O2 Delivery Device O2 Liters/Min FiO2 Sodium 142 Potassium 3.1 L Chloride 110 H Carbon Dioxide 26 Anion Gap 6 BUN 14 Creatinine 0.84 Estim Creat Clear Calc 98 Estimated GFR > 60 Glucose 185 H POC Capillary Glucose 235 H Hemoglobin A1c Calcium 8.6 Magnesium Total Bilirubin AST ALT Alkaline Phosphatase Troponin I NT-Pro-B Natriuret Pep Total Protein Albumin Triglycerides Cholesterol LDL Cholesterol Direct HDL Direct Nasal MRSA (PCR) Not detected 02/15/25 02/15/25 02/15/25 11:30 12:30 13:37 WBC RBC Hgb Hct MCV MCH MCHC RDW Plt Count MPV Immature Gran % (Auto) Neut % (Auto) Lymph % (Auto) Cooper % (Auto) Eos % (Auto) Baso % (Auto) Lymph # (Auto) Cooper # (Auto) Eos # (Auto) Baso # (Auto) Abs Immat Gran (auto) Absolute Neuts (auto) Absolute Nucleated RBC Nucleated RBC % Puncture Site ABG pH ABG pCO2 ABG pO2 ABG PO2/FiO2 Ratio ABG HCO3 ABG O2 Saturation ABG O2 Content ABG Base Excess A-a Gradient Oxyhemoglobin Total Hemoglobin O2 Delivery Device O2 Liters/Min FiO2 Sodium Potassium Chloride Carbon Dioxide Anion Gap BUN Creatinine Estim Creat Clear Calc Estimated GFR Glucose POC Capillary Glucose 180 H 155 H 230 H Hemoglobin A1c Calcium Magnesium Total Bilirubin AST ALT Alkaline Phosphatase Troponin I NT-Pro-B Natriuret Pep Total Protein Albumin Triglycerides Cholesterol LDL Cholesterol Direct HDL Direct Nasal MRSA (PCR) 02/15/25 02/15/25 02/15/25 14:29 16:51 18:56 WBC RBC Hgb Hct MCV MCH MCHC RDW Plt Count MPV Immature Gran % (Auto) Neut % (Auto) Lymph % (Auto) Cooper % (Auto) Eos % (Auto) Baso % (Auto) Lymph # (Auto) Cooper # (Auto) Eos # (Auto) Baso # (Auto) Abs Immat Gran (auto) Absolute Neuts (auto) Absolute Nucleated RBC Nucleated RBC % Puncture Site ABG pH ABG pCO2 ABG pO2 ABG PO2/FiO2 Ratio ABG HCO3 ABG O2 Saturation ABG O2 Content ABG Base Excess A-a Gradient Oxyhemoglobin Total Hemoglobin O2 Delivery Device O2 Liters/Min FiO2 Sodium Potassium Chloride Carbon Dioxide Anion Gap BUN Creatinine Estim Creat Clear Calc Estimated GFR Glucose POC Capillary Glucose 221 H 258 H 360 H Hemoglobin A1c Calcium Magnesium Total Bilirubin AST ALT Alkaline Phosphatase Troponin I NT-Pro-B Natriuret Pep Total Protein Albumin Triglycerides Cholesterol LDL Cholesterol Direct HDL Direct Nasal MRSA (PCR) 1202/15/25 02/15/25 19:44 20:25 23:13 WBC RBC Hgb Hct MCV MCH MCHC RDW Plt Count MPV Immature Gran % (Auto) Neut % (Auto) Lymph % (Auto) Cooper % (Auto) Eos % (Auto) Baso % (Auto) Lymph # (Auto) Cooper # (Auto) Eos # (Auto) Baso # (Auto) Abs Immat Gran (auto) Absolute Neuts (auto) Absolute Nucleated RBC Nucleated RBC % Puncture Site Right brachial ABG pH 7.312 L ABG pCO2 45.8 H ABG pO2 107.9 H ABG PO2/FiO2 Ratio 1.08 ABG HCO3 22.6 ABG O2 Saturation 97.5 ABG O2 Content 21.9 ABG Base Excess -3.8 A-a Gradient 559.3 Oxyhemoglobin 97.1 Total Hemoglobin 16.0 O2 Delivery Device Not Reportable O2 Liters/Min 15.0 FiO2 100 Sodium 137 Potassium 3.7 Chloride 104 Carbon Dioxide 24 Anion Gap 9 BUN 14 Creatinine 0.89 Estim Creat Clear Calc 93 Estimated GFR > 60 Glucose 387 H POC Capillary Glucose 346 H Hemoglobin A1c Calcium 8.1 L Magnesium 1.7 Total Bilirubin 0.6 AST 29 ALT 23 Alkaline Phosphatase 36 L Troponin I 0.808 H* NT-Pro-B Natriuret Pep 3990 H Total Protein 6.3 Albumin 3.6 Triglycerides Cholesterol LDL Cholesterol Direct HDL Direct Nasal MRSA (PCR) 02/16/25 02/16/25 02/16/25 00:32 03:54 06:55 WBC 16.4 H RBC 4.89 Hgb 15.2 Hct 45.6 MCV 93.3 MCH 31.1 MCHC 33.3 RDW 12.4 Plt Count 248 MPV 11.3 H Immature Gran % (Auto) 0.3 Neut % (Auto) 82.0 H Lymph % (Auto) 11.8 L Cooper % (Auto) 5.6 Eos % (Auto) 0.1 Baso % (Auto) 0.2 Lymph # (Auto) 1.94 Cooper # (Auto) 0.9 H Eos # (Auto) 0.0 Baso # (Auto) 0.0 Abs Immat Gran (auto) 0.05 H Absolute Neuts (auto) 13.4 H Absolute Nucleated RBC 0.000 Nucleated RBC % 0.0 Puncture Site ABG pH ABG pCO2 ABG pO2 ABG PO2/FiO2 Ratio ABG HCO3 ABG O2 Saturation ABG O2 Content ABG Base Excess A-a Gradient Oxyhemoglobin Total Hemoglobin O2 Delivery Device O2 Liters/Min FiO2 Sodium 136 L Potassium 3.2 L Chloride 107 Carbon Dioxide 24 Anion Gap 5 BUN 18 Creatinine 0.97 Estim Creat Clear Calc 86 Estimated GFR > 60 Glucose 296 H POC Capillary Glucose 286 H Hemoglobin A1c 13.9 H Calcium 8.2 L Magnesium 1.9 Total Bilirubin 0.9 AST 45 ALT 22 Alkaline Phosphatase 29 L Troponin I 2.340 H* D 3.010 H* D NT-Pro-B Natriuret Pep Total Protein 6.4 Albumin 3.6 Triglycerides 225 H Cholesterol 238 H LDL Cholesterol Direct 157 HDL Direct 39 Nasal MRSA (PCR) 02/16/25 06:56 WBC RBC Hgb Hct MCV MCH MCHC RDW Plt Count MPV Immature Gran % (Auto) Neut % (Auto) Lymph % (Auto) Cooper % (Auto) Eos % (Auto) Baso % (Auto) Lymph # (Auto) Cooper # (Auto) Eos # (Auto) Baso # (Auto) Abs Immat Gran (auto) Absolute Neuts (auto) Absolute Nucleated RBC Nucleated RBC % Puncture Site ABG pH ABG pCO2 ABG pO2 ABG PO2/FiO2 Ratio ABG HCO3 ABG O2 Saturation ABG O2 Content ABG Base Excess A-a Gradient Oxyhemoglobin Total Hemoglobin O2 Delivery Device O2 Liters/Min FiO2 Sodium Potassium Chloride Carbon Dioxide Anion Gap BUN Creatinine Estim Creat Clear Calc Estimated GFR Glucose POC Capillary Glucose Hemoglobin A1c Calcium Magnesium Total Bilirubin AST ALT Alkaline Phosphatase Troponin I 3.530 H* NT-Pro-B Natriuret Pep Total Protein Albumin Triglycerides Cholesterol LDL Cholesterol Direct HDL Direct Nasal MRSA (PCR)
[2025-02-16] MEDS: FENOFIBRATE 145 MG TABLET PO (09:44)
[2025-02-16] MEDS: ASPIRIN 81 MG CHEWABLE TABLET PO (09:45)
[2025-02-16] MEDS: ATORVASTATIN 40 MG TABLET PO (09:45)
[2025-02-16] MEDS: CLOPIDOGREL BISULFATE 75 MG TABLET PO (09:45)
[2025-02-16] MEDS: PERFLUTREN LIPID MICROSPHERES 1.5 ML VIAL DILUTED TO 10 ML TOTAL VOLUME IV PUSH (12:30)
--- NOTE | 2025-02-16 12:59 | PCSTNOTE ---
Please refer to the Bedside Swallow Evaluation in the EMR. Please note, silent aspiration cannot be ruled out at bedside.
--- NOTE | 2025-02-16 13:35 | IVDEFINITY ---
Prior to administration of IV Definity the patient was educated on the risks and benefits of the imaging enhancing agent including potential adverse side effects. The patient verbalized understanding. Allergies were verified. No exclusion criteria were identified and at least one of the following inclusion criteria were met: 1) physician request, 2) patient technically difficult to image (per the [place] [employer] guidelines of two or more segments not discernable within the apical view), or 3) questionable left ventricular function. ?
--- NOTE | 2025-02-16 13:58 | P.CONNEU_ITS ---
Assessment and Plan Assessment and plan (1) Dysarthria: Code(s): R47.1 - Dysarthria and anarthria Status: Acute Assessment and Plan: On exam head did not find any evidence for dysarthria and in fact patient also feels is improved. It may have been in the early stage where he was dehydrated. At any rate he would be considered at high risk from stroke point of view. A CT scan of the brain had shown infarct in the right parietal lobe area and also left cerebellum. These appear old. There is no new infarct noted. CT angiogram of the head and neck shows focal occlusion of the right 2nd and 3rd segment of the cerebral artery. An MRI of the brain is planned. His LDL was very high at 157. he slid aspirin 81 mg a day atorvastatin 40 mg a day and Plavix 75 mg daily. This appears to be adequate coverage from the point of view of cerebrovascular disease for now and based upon MRI of the brain further decision can be made. (2) DKA (diabetic ketoacidosis): Code(s): E11.10 - Type 2 diabetes mellitus with ketoacidosis without coma Status: Acute Assessment and Plan: Patient has improved since admission. I noted that he was in intensive care unit but has now been back to floor. (3) Leukocytosis: Code(s): D72.829 - Elevated white blood cell count, unspecified Status: Acute Assessment and Plan: Most likely due to sepsis however he has a metabolic derangement due to diabetic ketoacidosis. (4) Ulnar neuropathy of left upper extremity: Code(s): G56.22 - Lesion of ulnar nerve, left upper limb Status: Acute Assessment and Plan: The patient states that he has some sort of injury to left hand and he has weakness in the left hand. Since he did not have any pain he did not want to pay any attention to this problem. I have alerted him regarding investigation and treatment of the same as an outpatient at the earliest convenience. Plan His LDL was very high at 157. He should be considered high risk from cerebrovascular disease point of view. He already has history of 3 cardiac stents. You may consider increasing the dose of atorvastatin to 80 mg a day or consider an alternate drug such as rosuvastatin 40 mg a day. however patient follows of somebody in [facility] and he is going to take this further with them. He also has evidence for left ulnar neuropathy and he should have EMG nerve can study of the left hand and probably a consultation hand surgery. I have mentioned that to him but he is not worried since he states that he does not hurt. I want him that this can lead to weakness of the left hand which may at some point may become a problem.. Consult date: 02/16/25 HPI: Da Damon is a 59 year old maleWith history of diabetes mellitus presented to the hospital with diabetic ketoacidosis and also had some dysarthria. Speech has improved. He was able to walk with the help of physical therapist. He denies any symptoms of weakness in upper lower limbs. There is no prior history of stroke. His family members also present the time of the evaluation. He has history of cardiac disease and has 3 stenting been seen by the teacher of the handicapped. His WBC count was elevated and his LDL today is 157. 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 CT angiogram head and neck is show no focal occlusion of the right posterior cerebral artery in P2 and P3 segment. An MRI of the brain is awaited. This time patient denies any active neurologic symptoms. However he does have some weakness in the left hand and he attributes that to having some injury about a year so ago he did not seek any help since he had no pain although his strength is not as good in the left hand. However he is not concerned about it. Review of Systems 2 Review of Systems: All systems reviewed & are unremarkable except as noted in HPI and below PMFSH Past Medical History Medical History (Updated 02/16/25 @ 14:07 by Jose Ramirez MD) Ulnar neuropathy of left upper extremity Myocardial infarct Insulin dependent diabetes mellitus Family History Family History (Updated 02/15/25 @ 09:33 by Bethany Dumont RN) Father Heart attack Other Diabetes mellitus Social History Social History Smoking packs per day: 2 Smoking cigarettes per day: 40.0 Years smoked: 10 Smoking pack-years: 20.00 Smoking status: Former smoker Alcohol intake: current Drinks per week: 1 Substance use: never Lack of Transportation: No Lack of Food: Never True Current Housing: I Have Housing Concerned About Future Housing: No Difficulty Paying Gas/Electric Bills: No Difficulty Paying for Meds: No Currently Unemployed: No Education: Bachelor's Degree Difficulty w/ Childcare or Family Care: No Living arrangements: with family Spiritual care concerns: No Meds Home Medications and Allergies Home Medications ?Medication ?Instructions ?Recorded ?Confirmed ?Type clindamycin HCl 300 mg capsule 300 mg PO Q8H 10 days # 30 caps 09/06/24 02/15/25 Rx Held on 02/15/25. Instructions: .Provider Order mupirocin 2 % topical ointment 1 applic topical BID #1 5 grams 09/06/24 02/15/25 Rx Held on 02/15/25. Instructions: .Provider Order sulfamethoxazole 800 1 tablet PO Q12H 10 days #20 tabs 09/06/24 02/15/25 Rx mg-trimethoprim 160 mg tablet Held on 02/15/25. Instructions: .Provider Order carvedilol 6.25 mg tablet 6.25 mg PO Q12H 02/15/25 History clopidogrel 75 mg tablet 75 mg PO DAILY 02/15/2501/22 History fenofibrate nanocrystallized 145 145 mg PO DAILY 02/1502/15/25 History mg tablet glyburide 5 mg tablet 5 mg PO BID 02/15/25 5 History insulin glargine 100 unit/mL 30 unit subcut QPM 02/15/25 History subcutaneous solution (Lantus U-100 Insulin) lisinopril 10 mg tablet 10 mg PO DAILY 02/15/2501/22 History Allergies Allergy/AdvReac Type Severity Reaction Status Date / Time No Known Drug Allergies Allergy other Verified 02/15/25 09:31 Vital Signs Vital Signs - 24 hr 02/15/25 14:00 02/15/25 14:00 02/15/25 16:00 Temperature 98.2 F Pulse Rate 96 98 91 Respiratory Rate 19 22 H Blood Pressure 154/72 H 161/82 H Pulse Oximetry 94 96 Oxygen Delivery Oxygen Flow Rate 02/15/25 19:38 02/15/25 20:00 02/15/25 20:00 Temperature Pulse Rate 133 H 95 Respiratory Rate 36 H Blood Pressure 224/120 H Pulse Oximetry 97 98 Oxygen Delivery Non-Rebreather Mask Non-Rebreather Mask Oxygen Flow Rate 15 15 02/15/25 22:19 02/15/25 22:29 02/15/25 23:50 Temperature Pulse Rate 85 85 Respiratory Rate 21 H Blood Pressure Pulse Oximetry 96 94 Oxygen Delivery Nasal Cannula Nasal Cannula Oxygen Flow Rate 3 3 02/15/25 23:53 02/16/25 00:00 02/16/25 02:00 Temperature 97.6 F Pulse Rate 85 84 83 Respiratory Rate 21 H Blood Pressure 153/77 H Pulse Oximetry 94 Oxygen Delivery Oxygen Flow Rate 02/16/25 03:39 02/16/25 03:45 02/16/25 04:00 Temperature 97.8 F Pulse Rate 86 86 88 Respiratory Rate 22 H 22 H Blood Pressure 166/63 H Pulse Oximetry 93 93 Oxygen Delivery Nasal Cannula Oxygen Flow Rate 3 02/16/25 05:53 02/16/25 07:36 02/16/25 08:00 Temperature 96.7 F L Pulse Rate 81 81 Respiratory Rate 18 Blood Pressure 155/73 H Pulse Oximetry 96 Oxygen Delivery Room Air Oxygen Flow Rate 02/16/25 08:00 02/16/25 09:43 02/16/25 10:00 Temperature Pulse Rate 94 90 86 Respiratory Rate Blood Pressure Pulse Oximetry Oxygen Delivery Oxygen Flow Rate 02/16/25 10:11 02/16/25 11:47 02/16/25 11:54 Temperature 98.6 F Pulse Rate 76 Respiratory Rate 18 Blood Pressure 112/58 L Pulse Oximetry 93 93 Oxygen Delivery Nasal Cannula Nasal Cannula Oxygen Flow Rate 3 3 02/16/25 12:00 Temperature Pulse Rate 80 Respiratory Rate Blood Pressure Pulse Oximetry Oxygen Delivery Oxygen Flow Rate Exam 2 Const: General: cooperative and no acute distress HENMT: Head: atraumatic Mouth: Yes oropharynx normal Eyes: Alignment and Position: alignment normal and position normal EOM: E OMs intact bilaterally Neck: Neck: normal visual inspection and supple Resp: Effort & Inspection: normal respiratory effort Cardio: Heart sounds: S1 normal heart sound present and S2 normal heart sound present Skin: General skin exam: normal color Neuro: Cranial nerves: Yes CN's II-XII intact bilaterally, Yes facial symmetry and Yes Midline tongue present Cognition (Neuro): normal cognition Speech: normal speech Motor exam (neuro): 5/5 motor strength present throughout ( Weakness and mild atrophy in left ulnar nerve distribution hand) Sensory Exam: normal sensation ( no distal sensory loss and lower limbs) C oordination: [id number] test normal and Normal rapid alternating movements of the distal upper extremity present (Neuro) Extrem: General: normal to inspection Psych: Appearance: well kempt Mental Status: mental status grossly normal Speech and movement: Normal speech and movement present Affect: normal affect Thought process: Normal thought process present Thought content: Y es Normal thought content present Insight: Good insight present (Psych) J udgement: Good judgement present (Psych) Results Labs 02/16/25 03:54 02/16/25 03:54 Labs: Short CBC 02/16/25 Range/Units 03:54 WBC 16.4 H (4.5-10.0) K/mm3 Hgb 15.2 (14.0-18.0) g/dL Hct 45.6 (42.0-52.0) % Plt Count 248 (150-375) k/mm3 BMP 02/15/25 02/16/25 20:25 03:54 Sodium 137 136 L Potassium 3.7 3.2 L Chloride 104 107 Carbon Dioxide 24 24 BUN 14 18 Creatinine 0.89 0.97 Glucose 387 H 296 H Calcium 8.1 L 8.2 L Cardiac Enzymes 02/15/25 02/16/25 02/16/25 Range/Units 20:25 00:32 03:54 Troponin I 0.808 H* 2.340 H* D 3.010 H* D (0.000-0.034) ng/mL 02/16/25 Range/Units 06:56 Troponin I 3.530 H* (0.000-0.034) ng/mL Liver Function 02/15/25 02/16/25 Range/Units 20:25 03:54 Total Bilirubin 0.6 0.9 (0.2-1.3) mg/dL AST 29 45 (17-59) U/L ALT 23 22 (6-50) U/L Alkaline Phosphatase 36 L 29 L (38-126) U/L Albumin 3.6 3.6 (3.5-5.1) g/dL
[2025-02-16] MEDS: FLUTICASONE PROPIONATE 0.05% NA SPR 16 GM BTL (*BKC) 1 SPRAY NASAL ×2 (15:56→22:23)
[2025-02-16] MEDS: FUROSEMIDE INJ 40 MG/4 ML VIAL 20 MG IV PUSH (17:31)
[2025-02-16] MEDS: ENOXAPARIN 40 MG/0.4 ML SYRINGE SUB-Q (20:50)
[2025-02-17] VITALS (20 sets, daily range): BP systolic 153–170; BP diastolic 64–78; PULSE 74–96; RESP 18–22; TEMP 36.4–36.8; O2SAT 89–99
[2025-02-17] MEDS: AMPICILLIN SODIUM/SULBACTAM 3 GM in SODIUM CHLORIDE 0.9% IV 100 ML 200 ML IVPB ×3 (01:25→14:55)
[2025-02-17] MEDS: INSULIN GLARGINE (*BKC) 100 UNITS/ML 40 UNITS SUB-Q (09:16)
[2025-02-17] MEDS: FENOFIBRATE 145 MG TABLET PO (09:16)
[2025-02-17] MEDS: FLUTICASONE PROPIONATE 0.05% NA SPR 16 GM BTL (*BKC) 1 SPRAY NASAL (09:16)
[2025-02-17] MEDS: ATORVASTATIN 40 MG TABLET PO (09:17)
[2025-02-17] MEDS: CLOPIDOGREL BISULFATE 75 MG TABLET PO (09:17)
[2025-02-17] MEDS: ASPIRIN 81 MG CHEWABLE TABLET PO (09:17)
[2025-02-17] MEDS: INSULIN ASPART (*BKC) 100 UNITS/ML SUB-Q (11:49)
--- NOTE | 2025-02-17 12:49 | PM.IMPN2 ---
Assessment and Plan Assessment and Plan (1) DKA (diabetic ketoacidosis): Code(s): E11.10 - Type 2 diabetes mellitus with ketoacidosis without coma Status: Acute Plan DKA Patient noted elevated Blood sugar Labs notable for Anion gap >14 and BG 527, Butyrate elevated COntineu IVF and Insulin infusion per DKA protocol this has been transitioned to basal bolus regimen. A1c came back elevated at 14. Gait disturbance and slurred speech CT head showed age indeterminate infarct CTA head and neck unremarkable MRI came back positive for right parieto-occipital acute/subacute infarct. Echo with no thrombus or PFO. Akinesis of the posterior segment consistent with previous infarcts in that segment., Lipid panel with LDL 157, A1c 14 Aspirin, plavix, statin PT/OT/ST Neurology consulted Elevated troponin ECHO pending, trend troponin Cardiology consulted Suspected due to hyperglycemia and DKA CAD s/p stents COntinue antiplatelets and statin, Metoprolol Aspiration pneumonia on Unasyn. Speech to see and cleared. Reports some chronic orthopnea/postnasal drip. Added Flonase nasal spray. Possible pulmonary edema as noted on the chest x-ray BNP elevated. Echo already ordered received 20 mg IV dose of Lasix. Repeat chest x-ray with partial resolution of the bilateral airspace opacities. Re-dose Lasix 02/16/2025. Wean oxygen as tolerated. Home O2 evaluation DVT prophylaxis on Sq Lovenox FUll code Karlie Damon Subjective Date/time seen: 02/17/25 12:49 Interval history: Feeling better. Work with therapy. MRI finding reviewed with the patient. Review of Systems Review of Systems: All systems reviewed & are unremarkable except as noted in HPI and below Exam Narrative: General: alert and comfortable not in acute distress Eyes: EOMI, PERRLA ENNTExternal ears normal, Neck is supple, no masses, Respiratory systems: Clear to auscultation no respiratory distress Cardiovascular S1, S2, normal rhythm, no murmur, rub, or gallop; no thrill or palpable murmurs on palpation. Gastrointestinal: soft, non-tender, and non-distended abdomen with no masses; BS present Skin: no rash, lesions, ulcerations, subcutaneous nodules or induration Musculoskeletal: no abnormality and no tenderness, normal ROM Neurologic: Alert and oriented x3, non focal Mental Status Exam: normal affect Objective Data Vital Signs Vital Signs: Vital Signs - 24 hr 02/16/25 13:59 02/16/25 15:51 02/16/25 15:56 Temperature 97.5 F L Pulse Rate 96 88 Respiratory Rate 22 H Blood Pressure 165/78 H Pulse Oximetry 97 Oxygen Delivery Nasal Cannula Oxygen Flow Rate 3 02/16/25 17:51 02/16/25 19:49 02/16/25 20:00 Temperature 97.6 F Pulse Rate 98 96 96 Respiratory Rate 20 Blood Pressure 166/69 H Pulse Oximetry 92 Oxygen Delivery Oxygen Flow Rate 02/16/25 20:34 02/16/25 20:50 02/16/25 22:00 Temperature Pulse Rate 96 86 78 Respiratory Rate 20 Blood Pressure Pulse Oximetry 92 Oxygen Delivery Nasal Cannula Oxygen Flow Rate 3 02/17/25 00:00 02/17/25 00:00 02/17/25 00:29 Temperature 97.6 F Pulse Rate 79 80 79 Respiratory Rate 18 18 Blood Pressure 153/75 H Pulse Oximetry 99 99 Oxygen Delivery Nasal Cannula Oxygen Flow Rate 3 02/17/25 01:00 02/17/25 02:00 02/17/25 03:39 Temperature Pulse Rate 77 80 77 Respiratory Rate 20 18 Blood Pressure Pulse Oximetry 98 98 Oxygen Delivery Nasal Cannula Nasal Cannula Oxygen Flow Rate 2 2 02/17/25 04:00 02/17/25 04:39 02/17/25 05:42 Temperature 97.6 F Pulse Rate 74 77 78 Respiratory Rate 18 Blood Pressure 157/72 H Pulse Oximetry 98 Oxygen Delivery Oxygen Flow Rate 02/17/25 08:00 02/17/25 08:00 02/17/25 08:21 Temperature 98.2 F Pulse Rate 86 85 Respiratory Rate 22 H Blood Pressure 160/64 H Pulse Oximetry 95 94 Oxygen Delivery Room Air Oxygen Flow Rate 02/17/25 08:24 02/17/25 09:17 02/17/25 10:00 Temperature Pulse Rate 83 80 Respiratory Rate Blood Pressure Pulse Oximetry 97 Oxygen Delivery Nasal Cannula Oxygen Flow Rate 2 02/17/25 10:53 02/17/25 11:43 Temperature 98.1 F Pulse Rate 82 Respiratory Rate 20 Blood Pressure 170/78 H Pulse Oximetry 94 94 Oxygen Delivery Room Air Oxygen Flow Rate Intake/Output Intake/Output: Intake & Output 02/14/25 02/15/25 02/16/25 02/17/25 23:59 23:59 23:59 23:59 Intake Total 3902.5 720 1480 Output Total 900 1625 600 Balance 3002.5 -905 880 Meds/Results Medications: Active Medications Generic Name Dose Route Start Last Admin Trade Name Freq PRN Reason Stop Dose Admin Acetaminophen 650 mg 02/15/25 06:46 Acetaminophen 325 Mg Tablet PO Q4H PRN Mild Pain (1-3) or Fever Aspirin 81 mg 02/16/25 08:00 02/17/25 09:17 Aspirin 81 Mg Chewable Tablet PO 81 mg DAILY@0800 INOCENCIO Administration Atorvastatin Calcium 40 mg 02/16/25 09:00 02/17/25 09:17 Atorvastatin 40 Mg Tablet PO 40 mg DAILY INOCENCIO Administration Carvedilol 6.25 mg 02/15/25 12:20 02/17/25 09:17 Carvedilol 6.25 Mg Tablet PO 6.25 mg Q12HR INOCENCIO Administration Clopidogrel Bisulfate 75 mg 02/16/25 09:00 02/17/25 09:17 Clopidogrel Bisulfate 75 Mg Tablet PO 75 mg DAILY INOCENCIO Administration Dextrose 12.5 gm 02/15/25 06:40 Dextrose 50% 25 Gm/50 Ml Syringe IV PUSH PRN PRN Hypoglycemia Protocol Enoxaparin Sodium 40 mg 02/15/25 21:00 02/16/25 20:50 Enoxaparin 40 Mg/0.4 Ml Syringe SUB-Q 40 mg BEDTIME INOCENCIO Administration Fenofibrate 145 mg 02/16/25 09:00 02/17/25 09:16 Fenofibrate 145 Mg Tablet PO 145 mg DAILY INOCENCIO Administration Fluticasone Propionate 1 spray 02/16/25 14:30 02/17/25 09:16 Fluticasone Propionate 0.05% Na Spr 16 Gm Btl (*Bkc) NASAL 1 spray Q12HR INOCENCIO Administration Glucagon 1 mg 02/15/25 06:40 Glucagon For Inj 1 Mg Vial IM PRN PRN Hypoglycemia Protocol Glucose 15 gm 02/15/25 06:40 Glucose Oral Gel 15 Gm Of Glucse In 37.5 Gm Tube PO PRN PRN Hypoglycemia Protocol Dextrose 1,000 mls @ 100 mls/hr 02/15/25 06:40 Dextrose 5% 1,000 Ml IVPB PRN PRN Hypoglycemia Protocol Ampicillin Sodium/Sulbactam 100 mls @ 200 mls/hr 02/15/25 20:00 02/17/25 09:47 Sodium 3 gm/ Sodium Chloride IVPB Infused Q6H [facility] Infusion Insulin Aspart 5 units 02/15/25 17:00 02/15/25 17:52 Insulin Aspart (*Bkc) 100 Units/Ml SUB-Q Not Given On Hold: 02/15/25 19:58 TIDWM [facility] Protocol Insulin Aspart 4 - 8 units 02/16/25 00:00 02/17/25 11:49 Insulin Aspart (*Bkc) 100 Units/Ml SUB-Q 4 units Q6HR INOCENCIO Administration Protocol Insulin Aspart 10 units 02/16/25 17:00 Insulin Aspart (*Bkc) 100 Units/Ml SUB-Q On Hold: 02/16/25 17:00 TIDWM [facility] Insulin Glargine 40 units 02/16/25 09:00 02/17/25 09:16 Insulin Glargine (*Bkc) 100 Units/Ml SUB-Q 40 units DAILY INOCENCIO Administration Ondansetron HCl 4 mg 02/15/25 06:46 Ondansetron Inj 4 Mg/2 Ml Vial IV PUSH Q4H PRN Nausea Radiology Results: ITS Impressions Head/Neck CTA 02/15/25 08:29 IMPRESSION: CT HEAD: 1. Age indeterminate infarct right parietal lobe. CTA NECK: 1. No ICA stenosis or other acute arterial abnormality. CTA HEAD: 1. No large vessel arterial occlusive disease. 2. Question focal occlusion right P2/3 junction. 3. No aneurysms. Chest X-Ray 02/16/25 14:33 IMPRESSION: 1. Partial resolution of bilateral airspace opacities compared with previous examination on 02/15/2025. Brain MRI 02/16/25 16:30 IMPRESSION: 1. Restricted diffusion involving posterior right parieto-occipital location suggestive of acute or subacute infarct. 2. No intracranial bleed. Chronic ischemic change of periventricular white matter on both sides. 3. No abnormal enhancement on postcontrast study. Labs Labs: Laboratory Results - last 24 hr 02/16/25 02/17/25 02/17/25 17:30 00:18 06:27 POC Capillary Glucose 268 H 168 H 162 H 02/17/25 11:42 POC Capillary Glucose 238 H
--- NOTE | 2025-02-17 14:42 | PCRCNOTE ---
Home oxygen evaluation complete. Patient requires no oxygen at this time. ERENDIRA Cornejo notified.
--- NOTE | 2025-02-17 14:56 | P.DS_ITS ---
DS: Admitting Diagnosis Discharge Date 02/17/2025 Admitting Diagnosis Hyperglycemia gait disturbances DS: Discharge Diagnosis Discharge Diagnosis (1) DKA (diabetic ketoacidosis): Code(s): E11.10 - Type 2 diabetes mellitus with ketoacidosis without coma Status: Acute (2) CVA (cerebral vascular accident): Code(s): I63.9 - Cerebral infarction, unspecified Status: Acute (3) Elevated troponin: Code(s): R79.89 - Other specified abnormal findings of blood chemistry Status: Acute DS: Summary Hospital Course Hospital Course: DKA Patient noted elevated Blood sugar Labs notable for Anion gap >14 and BG 527, Butyrate elevated COntineu IVF and Insulin infusion per DKA protocol this has been transitioned to basal bolus regimen. A1c came back elevated at 14. Gait disturbance and slurred speech evaluation positive for acute stroke CT head showed age indeterminate infarct CTA head and neck unremarkable MRI came back positive for right parieto-occipital acute/subacute infarct. Echo with no thrombus or PFO. Akinesis of the posterior segment consistent with previous infarcts in that segment., Lipid panel with LDL 157, A1c 14 Aspirin, plavix, statin PT/OT/ST Neurology consulted and follow-up with neurology as outpatient basis Elevated troponin ECHO pending, trend troponin Cardiology consulted Suspected due to hyperglycemia and DKA CAD s/p stents COntinue antiplatelets and statin, Metoprolol Aspiration pneumonia on Unasyn. Speech to see and cleared. Reports some chronic orthopnea/postnasal drip. Added Flonase nasal spray. Possible pulmonary edema as noted on the chest x-ray BNP elevated. Echo already ordered received 20 mg IV dose of Lasix. Repeat chest x-ray with partial resolution of the bilateral airspace opacities. Re-dose Lasix 02/16/2025. Wean oxygen as tolerated. Home O2 evaluation with no oxygen requirement DVT prophylaxis on Sq Lovenox FUll code Karlie Damon Time Spent with Patient Time attestation: Total time spent providing and/or coordinating discharge services: 45 minutes Exam Narrative: General: alert and comfortable not in acute distress Eyes: EOMI, PERRLA ENNTExternal ears normal, Neck is supple, no masses, Respiratory systems: Clear to auscultation no respiratory distress Cardiovascular S1, S2, normal rhythm, no murmur, rub, or gallop; no thrill or palpable murmurs on palpation. Gastrointestinal: soft, non-tender, and non-distended abdomen with no masses; BS present Skin: no rash, lesions, ulcerations, subcutaneous nodules or induration Musculoskeletal: no abnormality and no tenderness, normal ROM Neurologic: Alert and oriented x3, non focal Mental Status Exam: normal affect DS: Data Data Completed and Pending Completed studies during hospitalization: Exam Type: CA echo dop bubble study w con Complete two-dimentional, color flow and Doppler transthoracic echocardiogram is performed with agitated saline and with contrast to opacify the left ventricle and to improve the delineation of the left ventricle endocardial borders. Staff Referring Physician: Shilo Arenas Physical Therapist Aide: Emily Bingham Attending Provider: Antonella London DO Contrast/Agitated Saline Contrast/Ag. Saline: Definity Amount: 2.00 ml Administered By: Emily Bingham Existing IV Access: Yes IV Access Condition: patent with no signs of infiltration Contrast/Ag. Saline: Agitated Saline Amount: 20.00 ml Existing IV Access: Yes IV Access Condition: patent with no signs of infiltration Summary 1. Mild left ventricular hypertrophy with overall normal ejection fraction and grade 1 diastolic noncompliance. 2. Akinesis of the posterior segment consistent with previous infarction in that segment. 3. Mildly sclerotic aortic valve which is not stenotic. 4. Agitated saline contrast injection demonstrated no intracardiac shunt. 5. Definity contrast injected to improve visualization. Left Ventricle Left ventricular chamber dimension is normal. Left ventricular systolic function is normal, estimated at 50-55. There is mild concentric increased left ventricular wall thickness. The left ventricular diastolic function is grade I diastolic dysfunction. Right Ventricle Right ventricular chamber dimension is normal. Left Atria Left atrial chamber dimension is mildly enlarged. Right Atria Right atrial chamber dimension is normal. Aortic Valve The aortic valve is trileaflet. There is mild aortic valve sclerosis. Pulmonic Valve The pulmonic valve is normal. Mitral Valve The mitral valve has normal leaflets. Tricuspid Valve The tricuspid valve leaflets are normal. Pericardium/Pleural The pericardium appears normal. Aorta The aortic root size at the sinus of Valsalva is normal. Labs on day of discharge: Labs from last 24 hours 02/17/25 02/17/25 02/17/25 11:42 06:27 00:18 POC Capillary Glucose 238 H 162 H 168 H 02/16/25 17:30 POC Capillary Glucose 268 H Imaging Radiologist's impression: ITS Impressions Chest X-Ray 02/15/25 08:24 IMPRESSION: 1. No acute cardiopulmonary findings given portable technique. Head/Neck CTA 02/15/25 08:29 IMPRESSION: CT HEAD: 1. Age indeterminate infarct right parietal lobe. CTA NECK: 1. No ICA stenosis or other acute arterial abnormality. CTA HEAD: 1. No large vessel arterial occlusive disease. 2. Question focal occlusion right P2/3 junction. 3. No aneurysms. Chest X-Ray 02/15/25 19:20 Impression: 1: Developing bilateral airspace disease, most likely pulmonary edema. Chest X-Ray 02/16/25 14:33 IMPRESSION: 1. Partial resolution of bilateral airspace opacities compared with previous e xamination on 02/15/2025. Brain MRI 02/16/25 16:30 IMPRESSION: 1. Restricted diffusion involving posterior right parieto-occipital location suggestive of acute or subacute infarct. 2. No intracranial bleed. Chronic ischemic change of periventricular white matter on both sides. 3. No abnormal enhancement on postcontrast study. Discharge Plan Discharge Attending physician on discharge: Shilo Arenas Consulting providers: Markos Liu; Jose Ramirez; Zeus Hull Discharging Clinician: Shilo Arenas Anticipated Discharge Date/Time: 02/17/25 14:58 Patient Disposition: Home Activity: as tolerated Diet: heart healthy and diabetic Discharge Instructions: Accu-Cheks AC and HS. Keep a log. Need adjustment of insulin dosing depending on blood sugar. 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 Please Call for appointment Patient Instructions: Antibiotic Form, Clopidogrel (By mouth) Patient Language: Luxembourgish Stand Alone Forms: General Discharge Information, Work/School Release IP Follow-up/Referrals: Zeus Hull MD [Physician, Cardiology] - 2 Weeks Edy,Ramiro Galo DO [Primary Care Provider, Unknown] - 1 Week Jose Ramirez MD [Physician, Neurology] - 4 Weeks Discharge Medications: New insulin aspart U-100 [Novolog U-100 Insulin aspart] 100 unit/mL Solution 10 unit subcut TIDWM Qty: 30 0RF atorvastatin 40 mg Tablet 80 mg PO HS Qty: 60 0RF aspirin [Children's Aspirin] 81 mg Tablet,Chewable 81 mg PO DAILY@0800 Qty: 30 0RF fluticasone propionate 50 mcg/actuation [place],Suspension 1 spray intranasal Q12HR Qty: 30 0RF Continued mupirocin 2 % ointment 1 applic topical BID Qty: 15 0RF glyburide 5 mg tablet 5 mg PO BID lisinopril 10 mg tablet 10 mg PO DAILY fenofibrate nanocrystallized 145 mg tablet 145 mg PO DAILY carvedilol 6.25 mg tablet 6.25 mg PO Q12H clopidogrel 75 mg tablet 75 mg PO DAILY Changed insulin glargine [Lantus U-100 Insulin] 100 unit/mL solution 40 unit SUBCUT QPM Qty: 30 0RF Discontinued clindamycin HCl 300 mg capsule 300 mg PO Q8H 10 Days Qty: 30 0RF sulfamethoxazole-trimethoprim 800-160 mg tablet 1 tablet PO Q12H 10 Days Qty: 20 0RF Date of admission: 02/16/25 12:16 Primary Care Provider: Edy,Ramiro Galo Admitting Provider: Antonella London Attending physician on admission: Antonella London Condition: Stable
--- NOTE | 2025-02-17 15:02 | WPDNEUROPN ---
Progress Note: A&P Assessment and Plan (1) CVA (cerebral vascular accident): Code(s): I63.9 - Cerebral infarction, unspecified Status: Acute (2) Ulnar neuropathy of left upper extremity: Code(s): G56.22 - Lesion of ulnar nerve, left upper limb Status: Acute (3) DKA (diabetic ketoacidosis): Code(s): E11.10 - Type 2 diabetes mellitus with ketoacidosis without coma Status: Acute Plan The patient should be treated with dual antiplatelets for at least 3 months and a statins. His LDL was very high at 157 and I will suggest atorvastatin 80 mg a day. I shall be glad to see him for follow-up in my office. I have alerted him of the risk of subsequent stroke and importance of risk factor management. Fortunately he does not appear to have any visual field defect despite the location of the stroke in the right parietal occipital area. Subjective Date/time seen: 02/17/25 15:02 Interval history: The patient is 59 years old with history of diabetes mellitus admitted to the hospital with diabetic ketoacidosis. Had some dysarthria which subsequently improved. He underwent CT scan of brain initially that has shown possibly old stroke in the right parietal area and the left cerebellar area. Subsequent MRI of the brain was performed which shows evidence of a new stroke in the right parietal occipital area. CT angiogram has shown occlusion of the right P2 and P3 segments. Patient denies any headache or diplopia or any weakness in upper lower limbs. Review of Systems Review of Systems: All systems reviewed & are unremarkable except as noted in HPI and below Exam Const: General: cooperative and comfortable HENMT: Head: atraumatic Mouth: Yes oropharynx normal Eyes: Alignment and Position: alignment normal and position normal EOM: EOMs intact bilaterally Neck: Neck: normal visual inspection and supple Resp: Effort & Inspection: normal respiratory effort Skin: General skin exam: normal color Neuro: Cranial nerves: Yes CN's II-XII intact bilaterally, Yes facial symmetry and Yes Midline tongue present Cognition (Neuro): normal cognition Speech: normal speech Extrem: General: normal to inspection Other: No visual field defect noted Psych: Appearance: well kempt Mental Status: mental status grossly normal Speech and movement: Normal speech and movement present Affect: normal affect Thought process: Normal thought process present Thought content: Yes Normal thought content present Insight: Good insight present (Psych) Judgement: Good judgement present (Psych) Objective Data Vital Signs Vital Signs: Vital Signs - 24 hr 02/16/25 15:51 02/16/25 15:56 02/16/25 17:51 Temperature 97.5 F L Pulse Rate 88 98 Respiratory Rate 22 H Blood Pressure 165/78 H Pulse Oximetry 97 Oxygen Delivery Nasal Cannula Oxygen Flow Rate 3 02/16/25 19:49 02/16/25 20:00 02/16/25 20:34 Temperature 97.6 F Pulse Rate 96 96 96 Respiratory Rate 20 20 Blood Pressure 166/69 H Pulse Oximetry 92 92 Oxygen Delivery Nasal Cannula Oxygen Flow Rate 3 02/16/25 20:50 02/16/25 22:00 02/17/25 00:00 Temperature 97.6 F Pulse Rate 86 78 79 Respiratory Rate 18 Blood Pressure 153/75 H Pulse Oximetry 99 Oxygen Delivery Oxygen Flow Rate 02/17/25 00:00 02/17/25 00:29 02/17/25 01:00 Temperature Pulse Rate 80 79 77 Respiratory Rate 18 20 Blood Pressure Pulse Oximetry 99 98 Oxygen Delivery Nasal Cannula Nasal Cannula Oxygen Flow Rate 3 2 02/17/25 02:00 02/17/25 03:39 02/17/25 04:00 Temperature Pulse Rate 80 77 74 Respiratory Rate 18 Blood Pressure Pulse Oximetry 98 Oxygen Delivery Nasal Cannula Oxygen Flow Rate 2 02/17/25 04:39 02/17/25 05:42 02/17/25 08:00 Temperature 97.6 F Pulse Rate 77 78 Respiratory Rate 18 Blood Pressure 157/72 H Pulse Oximetry 98 95 Oxygen Delivery Room Air Oxygen Flow Rate 02/17/25 08:00 02/17/25 08:21 02/17/25 08:24 Temperature 98.2 F Pulse Rate 86 85 Respiratory Rate 22 H Blood Pressure 160/64 H Pulse Oximetry 94 97 Oxygen Delivery Nasal Cannula Oxygen Flow Rate 2 02/17/25 09:17 02/17/25 10:00 02/17/25 10:53 Temperature Pulse Rate 83 80 Respiratory Rate Blood Pressure Pulse Oximetry 94 Oxygen Delivery Room Air Oxygen Flow Rate 02/17/25 11:43 02/17/25 12:00 02/17/25 12:00 Temperature 98.1 F Pulse Rate 82 76 Respiratory Rate 20 Blood Pressure 170/78 H Pulse Oximetry 94 95 Oxygen Delivery Room Air Oxygen Flow Rate 02/17/25 14:12 02/17/25 14:14 02/17/25 14:17 Temperature Pulse Rate 86 95 96 Respiratory Rate Blood Pressure Pulse Oximetry 95 90 89 L Oxygen Delivery Room Air Room Air Room Air Oxygen Flow Rate Intake/Output Intake/Output: Intake & Output 02/14/25 02/15/25 02/16/25 02/17/25 23:59 23:59 23:59 23:59 Intake Total 3902.5 720 1720 Output Total 900 1625 600 Balance 3002.5 -905 1120 Meds/Results Medications: Active Medications Generic Name Dose Route Start Last Admin Trade Name Freq PRN Reason Stop Dose Admin Acetaminophen 650 mg 02/15/25 06:46 Acetaminophen 325 Mg Tablet PO Q4H PRN Mild Pain (1-3) or Fever Aspirin 81 mg 02/16/25 08:00 02/17/25 09:17 Aspirin 81 Mg Chewable Tablet PO 81 mg DAILY@0800 INOCENCIO Administration Atorvastatin Calcium 80 mg 02/18/25 09:00 Atorvastatin 40 Mg Tablet PO DAILY INOCENCIO Carvedilol 6.25 mg 02/15/25 12:20 02/17/25 09:17 Carvedilol 6.25 Mg Tablet PO 6.25 mg Q12HR INOCENCIO Administration Clopidogrel Bisulfate 75 mg 02/16/25 09:00 02/17/25 09:17 Clopidogrel Bisulfate 75 Mg Tablet PO 75 mg DAILY INOCENCIO Administration Dextrose 12.5 gm 02/15/25 06:40 Dextrose 50% 25 Gm/50 Ml Syringe IV PUSH PRN PRN Hypoglycemia Protocol Enoxaparin Sodium 40 mg 02/15/25 21:00 02/16/25 20:50 Enoxaparin 40 Mg/0.4 Ml Syringe SUB-Q 40 mg BEDTIME INOCENCIO Administration Fenofibrate 145 mg 02/16/25 09:00 02/17/25 09:16 Fenofibrate 145 Mg Tablet PO 145 mg DAILY INOCENCIO Administration Fluticasone Propionate 1 spray 02/16/25 14:30 02/17/25 09:16 Fluticasone Propionate 0.05% Na Spr 16 Gm Btl (*Bkc) NASAL 1 spray Q12HR INOCENCIO Administration Glucagon 1 mg 02/15/25 06:40 Glucagon For Inj 1 Mg Vial IM PRN PRN Hypoglycemia Protocol Glucose 15 gm 02/15/25 06:40 Glucose Oral Gel 15 Gm Of Glucse In 37.5 Gm Tube PO PRN PRN Hypoglycemia Protocol Dextrose 1,000 mls @ 100 mls/hr 02/15/25 06:40 Dextrose 5% 1,000 Ml IVPB PRN PRN Hypoglycemia Protocol Ampicillin Sodium/Sulbactam 100 mls @ 200 mls/hr 02/15/25 20:00 02/17/25 14:55 Sodium 3 gm/ Sodium Chloride IVPB 200 mls/hr Q6H INOCENCIO Administration Insulin Aspart 5 units 02/15/25 17:00 02/15/25 17:52 Insulin Aspart (*Bkc) 100 Units/Ml SUB-Q Not Given On Hold: 02/15/25 19:58 TIDWM [facility] Protocol Insulin Aspart 4 - 8 units 02/16/25 00:00 02/17/25 11:49 Insulin Aspart (*Bkc) 100 Units/Ml SUB-Q 4 units Q6HR INOCENCIO Administration Protocol Insulin Aspart 10 units 02/16/25 17:00 Insulin Aspart (*Bkc) 100 Units/Ml SUB-Q On Hold: 02/16/25 17:00 TIDWM INOCENCIO Insulin Glargine 40 units 02/16/25 09:00 02/17/25 09:16 Insulin Glargine (*Bkc) 100 Units/Ml SUB-Q 40 units DAILY INOCENCIO Administration Ondansetron HCl 4 mg 02/15/25 06:46 Ondansetron Inj 4 Mg/2 Ml Vial IV PUSH Q4H PRN Nausea Radiology Results: ITS Impressions Head/Neck CTA 02/15/25 08:29 IMPRESSION: CT HEAD: 1. Age indeterminate infarct right parietal lobe. CTA NECK: 1. No ICA stenosis or other acute arterial abnormality. CTA HEAD: 1. No large vessel arterial occlusive disease. 2. Question focal occlusion right P2/3 junction. 3. No aneurysms. Chest X-Ray 02/16/25 14:33 IMPRESSION: 1. Partial resolution of bilateral airspace opacities compared with previous examination on 02/15/2025. Brain MRI 02/16/25 16:30 IMPRESSION: 1. Restricted diffusion involving posterior right parieto-occipital location suggestive of acute or subacute infarct. 2. No intracranial bleed. Chronic ischemic change of periventricular white matter on both sides. 3. No abnormal enhancement on postcontrast study. Labs Labs: Laboratory Results - last 24 hr 02/16/25 02/17/25 02/17/25 17:30 00:18 06:27 POC Capillary Glucose 268 H 168 H 162 H 02/17/25 11:42 POC Capillary Glucose 238 H Imaging Attestation: I personally reviewed and interpreted this imaging study as follows: ( MRI of the brain shows diffusion defect in the right parietal occipital area and an old infarct in the left cerebellum) My impression: large new infarct in the right temporoparietal area and old infarct in the left cerebellum. Radiologist's impression: same
--- NOTE | 2025-02-22 13:06 | PCCDE ---
02/22/25: DM educator courtesy call completed. Pt states to his BG being better, 135 this am and usually in low 100's fasting. Has PCP appt Tue. Has OP flyer if decides interested in future for DSMT/MNT - aware referral requirement for insurance.
== END 2025-02-17 16:20 | disposition home or self-care (01) | DRG 64 ==
LOC: ANHED 04:00 → ANHICU 07:16 → ANH3MEDSUR 18:26 → ANHICU 19:15 → ANHIMU 23:18
PROVIDERS: Internal Medicine; Internal Medicine Critical Care Medicine; Student in an Organized Health Care Education/Training Program; Admitting Provider Internal Medicine; Emergency Provider Student in an Organized Health Care Education/Training Program; PCP Family Medicine; Visit Provider Internal Medicine
DX: I63.9 Cerebral infarction, unspecified (principal); E11.10 Type 2 diabetes mellitus with ketoacidosis without coma; J69.0 Pneumonitis due to inhalation of food and vomit; E87.0 Hyperosmolality and hypernatremia; R26.89 Other abnormalities of gait and mobility; R47.1 Dysarthria and anarthria; R29.705 NIHSS score 5; I44.0 Atrioventricular block, first degree; R06.01 Orthopnea; G56.22 Lesion of ulnar nerve, left upper limb; E11.65 Type 2 diabetes mellitus with hyperglycemia; I25.10 Atherosclerotic heart disease of native coronary artery without angina pectoris; E11.40 Type 2 diabetes mellitus with diabetic neuropathy, unspecified; Z20.822 Contact with and (suspected) exposure to COVID-19; Z87.891 Personal history of nicotine dependence; Z95.5 Presence of coronary angioplasty implant and graft; I25.2 Old myocardial infarction; Z79.84 Long term (current) use of oral hypoglycemic drugs; Z79.4 Long term (current) use of insulin; Z79.02 Long term (current) use of antithrombotics/antiplatelets
CPT/HCPCS: 36415; 36600; 70496; 70498; 70553; 71045; 80048; 80053; 80061; 81001; 82010; 82805; 82948; 83036; 83735; 83880; 84100; 84484; 85018; 85025; 87637; 87641; 92610; 93005; 94618; 96361; 96365; 96375; 97161; 99285; A9270; A9577; C8929; G0378; J0295; J1650; J1815; J1938; J3480; J7030; J7120; Q9957; Q9967